=== PATIENT | male | born 1950 | race Caucasian/White ===

== ENCOUNTER → 2018-02-21 | Outpatient (CLI) | payer MEDICARE | END | disposition home or self-care (01) | LOC: LAB SHORT 13:09 → LAB EV 13:09 | DX: N41.9 Inflammatory disease of prostate, unspecified (principal) | CPT/HCPCS: 87077; 87086 ==

== ENCOUNTER → 2018-03-21 | Outpatient (CLI) | payer MEDICARE ==
[2018-03-21 08:28] LABS: BASOPHILS ABSOLUTE AUTO 0.03 K/mm3 (0.00-0.23); BASOPHILS PERCENT AUTO 0 % (0-2); EOSINOPHILS ABSOLUTE AUTO 0.12 K/mm3 (0.00-0.68); EOSINOPHILS PERCENT AUTO 2 % (0-6); Hematocrit 37.7 % (37.0-53.0); Hemoglobin 12.9 g/dL (13.5-17.5); IMMATURE GRAN ABSOLUTE AUTO 0.02 K/mm3 (0.00-0.10); IMMATURE GRAN PERCENT AUTO 0 % (0-1); LYMPHOCYTES ABSOLUTE AUTO 0.79 K/mm3 (0.84-5.20); LYMPHOCYTES PERCENT AUTO 10 % (21-46); MONOCYTES ABSOLUTE AUTO 0.71 K/mm3 (0.16-1.47); MONOCYTES PERCENT AUTO 9 % (4-13); Mean Corpuscular HGB 38.6 pg (26.0-34.0); Mean Corpuscular HGB Conc 34.2 g/dL (31.5-36.5); Mean Corpuscular Volume 113 fL (80-100); Mean Platelet Volume 9.1 fL (9.1-12.4); NEUTROPHILS ABSOLUTE AUTO 6.02 K/mm3 (1.96-9.15); NEUTROPHILS PERCENT AUTO 78 % (41-73); Platelet Count 156 K/mm3 (150-400); RDW Standard Deviation 54.2 fL (35.1-46.3); Red Blood Cell Count 3.34 M/mm3 (4.30-5.90); White Blood Cell Count 7.69 K/mm3 (4.00-11.30)
[2018-03-21 08:40] LABS: Albumin, Blood 3.4 g/dL (3.4-5.0); Albumin/Globulin Ratio 0.9 (0.8-1.8); Bilirubin, Total 1.3 mg/dL (0.1-1.0); Bun/Creatinine Ratio 18.3 (12.0-20.0); Creatinine, Blood 1.26 mg/dL (0.60-1.20); Globulin, Blood 3.9 g/dL (2.2-4.0); Total Protein, Blood 7.3 g/dL (6.4-8.2)
== END | disposition home or self-care (01) ==
LOC: LAB EV 08:18 → LAB SHORT 08:18
PROVIDERS: Physician Assistant Medical
DX: J02.9 Acute pharyngitis, unspecified (principal); F10.20 Alcohol dependence, uncomplicated
CPT/HCPCS: 80053; 85025; 87070

== ENCOUNTER 2018-07-11 00:53 | Inpatient (IN) | payer MEDICARE ==
[~2018-07-11] VITALS: Ht 185.4 cm; Wt 108.1 kg
[2018-07-11] MEDS ORDERED: VERAPAMIL PO (01:07)
[2018-07-11] MEDS ORDERED: ADVAIR INH (01:08)
[2018-07-11] MEDS ORDERED: ALBUTEROL INH (01:08)
[2018-07-11] MEDS ORDERED: COUMADIN PO (01:08)
[2018-07-11] MEDS ORDERED: CLONIDINE (01:09)
[2018-07-11 01:39] LABS: BASOPHILS ABSOLUTE AUTO 0.03 K/mm3 (0.00-0.23); BASOPHILS PERCENT AUTO 1 % (0-2); EOSINOPHILS PERCENT AUTO 2 % (0-6); Hematocrit 38.2 % (37.0-53.0); Hemoglobin 12.5 g/dL (13.5-17.5); IMMATURE GRAN ABSOLUTE AUTO 0.02 K/mm3 (0.00-0.10); IMMATURE GRAN PERCENT AUTO 0 % (0-1); LYMPHOCYTES ABSOLUTE AUTO 1.47 K/mm3 (0.84-5.20); LYMPHOCYTES PERCENT AUTO 24 % (21-46); MONOCYTES ABSOLUTE AUTO 0.75 K/mm3 (0.16-1.47); MONOCYTES PERCENT AUTO 12 % (4-13); Mean Corpuscular HGB 37.5 pg (26.0-34.0); Mean Corpuscular HGB Conc 32.7 g/dL (31.5-36.5); Mean Corpuscular Volume 115 fL (80-100); Mean Platelet Volume 9.7 fL (9.1-12.4); NEUTROPHILS ABSOLUTE AUTO 3.76 K/mm3 (1.96-9.15); NEUTROPHILS PERCENT AUTO 61 % (41-73); Platelet Count 192 K/mm3 (150-400); RDW Coefficient Variation 14.5 % (11.7-14.2); RDW Standard Deviation 62.1 fL (35.1-46.3); Red Blood Cell Count 3.33 M/mm3 (4.30-5.90); White Blood Cell Count 6.13 K/mm3 (4.00-11.30)
[2018-07-11 01:52] LABS: Albumin, Blood 3.4 g/dL (3.4-5.0); Bilirubin, Total 0.5 mg/dL (0.1-1.0); Bun/Creatinine Ratio 14.4 (12.0-20.0); Calcium, Blood 8.6 mg/dL (8.5-10.1); Creatinine, Blood 1.46 mg/dL (0.60-1.20); Globulin, Blood 3.4 g/dL (2.2-4.0); Potassium, Blood 3.8 mmol/L (3.5-5.5); Total Protein, Blood 6.8 g/dL (6.4-8.2)
[2018-07-11 01:59] LABS: International Normalized Ratio 2.03; Prothrombin Time Results 20.1 Sec (9.7-11.5)
--- NOTE | 2018-07-11 03:00 | NUR ---
0300 ADMIT: PT ARRIVES TO ROOM 215 VIA GOURNEY FROM ER AND IS SLIDE SHEET TRANSFERRED TO BED BY 4 PEOPLE. EXTRA LINENS REMOVED AND PT TOLERATES REPOSITIONING WELL. PT ORIENTED TO ROOM, BED, CALL SYSTEM AND PLAN OF CARE.
--- NOTE | 2018-07-11 03:00 | NUR ---
0300 ADMIT: PT ARRIVES TO ROOM 215 VIA GOURNEY FROM ER AND IS SLIDE SHEET TRANSFERRED TO BED BY 4 PEOPLE. EXTRA LINENS REMOVED AND PT TOLERATES REPOSITIONING WELL. VSS, AFEBRILE, PAIN WELL CONTROLLED WITH 1 DOSE 25 MCG IV FENTANYL. PT MAINTAINS NPO STATUS IN ANTICIPATION OF POSSIBLE SURGICAL PROCEDURE. IV PATENT LEFT ELBOW, VOIDING CLEAR YELLOW.
--- NOTE | 2018-07-11 07:00 | NUR ---
SUMMARY: NEW ADMIT LEFT HIP FX ON HOSPITALIST SERVICE WITH ORTHO CONSULT BY DR. DUEÑAS. VSS, AFEBRILE, PAIN WELL CONTROLLED WITH 1 DOSE 25 MCG IV FENTANYL. PT MAINTAINS NPO STATUS IN ANTICIPATION OF POSSIBLE SURGICAL PROCEDURE. IV PATENT RIGHT AC, VOIDING CLEAR YELLOW.
--- NOTE | 2018-07-11 09:00 | NUR ---
PT PLEASANT COOP A/O STATES PAIN LEFT HIP LEFT. 5 WANTS TO BE 1 TOLERATES 3-4. MED PER EMAR. DISCUSSED ETOH. HE STATES 6-8 VODKAS PER DAY. DISCUSSED MAY GO INTO WITHDRAWLS. CHECKED SYMPTOMS. CWA 5. HEADACHE AND REGULAR TREMORS. DENIES HALUCINATIONS. HE TO ADVISE IF BECOMES ANX, AGITATED, HALUCINATIONS, ETC. H/R IRREG, HX AFIB. NO TELE. LUNGS PRESENT WITH EXP WHEEZES T/O. STATES USES INHALERS. BT X4 THINKS LAST BM YEST. VOIDS URINAL. BEDBOUND FOR TODAY UNTIL SURG. BED IN LOW POSITION, CALL LITE IN REACH, CALLS APPROP. TO BE HERE MOST OF DAY. OUT AT THIS TIME. LEFT LEG ROTATED OUT 90', WITHDRAWN.
[2018-07-11] MEDS ORDERED: Pentoxifylline400 MG PO (09:26)
[2018-07-11] MEDS ORDERED: TOCO1000 PO (09:26)
--- NOTE | 2018-07-11 10:11 | NUR ---
CALLED DR LOOMIS. ADVISED MEDS IN COMPUTER. PT HERE AND SURG EXPECTING SURG THIS LATE AFT. ADVISED BP 169/99 AND NO PILLS YET. ADVISED HE ADMITS 6-8 VODKA DRINKS DAILY. REQUEST FOR BEER WITH MEALS. PT NOT DESIRING TO QUIT RINKING. NO ORDERS AT THIS TIME.
--- NOTE | 2018-07-11 16:00 | NUR ---
CALLED DR LOOMIS, ADVISED ABOUT BP. NOW ON LR AT 75, CWA'S 8, LIGHT CHEST PRESSURE RELEIVED WHEN BP DOWN TO 200. HYDRALAZINE, ATIVAN, LIBRIUM FENTANYL GIVEN. BP STILL UP. WITHDRAWL SYMPTOMS BP, LIGHT ANX AND IRRIT, HEADACHE, LIGHT TREMORS. DR TO MAKE ORDERS.
--- NOTE | 2018-07-11 18:46 | NUR ---
PT PLEASANT TODAY, BP RESOLVING DOWN TO 140'S THIS DM. PAIN DOWN ALSO. RESTING COMFORTABLY AT THIS TIME. AT BEDSIDE. CWA DOWN TO 4. UNABLE TO SET UP BUCKS TRACTION TODAY. WILL PASS TO [facility]. NOTE IF CWA >10 AFTER MEDICATINS, SEND TO PCU. BED IN LOW POSITION, CALL LITE IN REACH, CALLS APPROP
[2018-07-12 04:19] LABS: BASOPHILS ABSOLUTE AUTO 0.01 K/mm3 (0.00-0.23); BASOPHILS PERCENT AUTO 0 % (0-2); EOSINOPHILS ABSOLUTE AUTO 0.01 K/mm3 (0.00-0.68); EOSINOPHILS PERCENT AUTO 0 % (0-6); Hematocrit 33.7 % (37.0-53.0); Hemoglobin 11.3 g/dL (13.5-17.5); IMMATURE GRAN ABSOLUTE AUTO 0.02 K/mm3 (0.00-0.10); IMMATURE GRAN PERCENT AUTO 0 % (0-1); LYMPHOCYTES ABSOLUTE AUTO 0.47 K/mm3 (0.84-5.20); LYMPHOCYTES PERCENT AUTO 6 % (21-46); MONOCYTES ABSOLUTE AUTO 0.63 K/mm3 (0.16-1.47); MONOCYTES PERCENT AUTO 8 % (4-13); Mean Corpuscular HGB 37.2 pg (26.0-34.0); Mean Corpuscular HGB Conc 33.5 g/dL (31.5-36.5); Mean Platelet Volume 9.6 fL (9.1-12.4); NEUTROPHILS ABSOLUTE AUTO 6.48 K/mm3 (1.96-9.15); NEUTROPHILS PERCENT AUTO 85 % (41-73); Platelet Count 142 K/mm3 (150-400); RDW Coefficient Variation 14.4 % (11.7-14.2); RDW Standard Deviation 58.8 fL (35.1-46.3); Red Blood Cell Count 3.04 M/mm3 (4.30-5.90); White Blood Cell Count 7.62 K/mm3 (4.00-11.30)
[2018-07-12 04:21] LABS: Mean Corpuscular Volume 111 fL (80-100)
[2018-07-12 04:31] LABS: International Normalized Ratio 1.79; Prothrombin Time Results 17.8 Sec (9.7-11.5)
[2018-07-12 04:35] LABS: Alanine Aminotransfer (ALT/SGP 19 U/L (12-78); Albumin/Globulin Ratio 0.9 (0.8-1.8); Alk Phos 113 U/L (50-136); Anion Gap 8 mmol/L (6-16); Aspartate Aminotrans (AST/SGOT 15 U/L (12-37); Bilirubin, Total 2.2 mg/dL (0.1-1.0); Blood Urea Nitrogen 17 mg/dL (8-24); Bun/Creatinine Ratio 18.3 (12.0-20.0); CO2, Blood 26 mmol/L (21-32); Calcium, Blood 8.2 mg/dL (8.5-10.1); Chloride, Blood 106 mmol/L (98-108); Creatinine, Blood 0.93 mg/dL (0.60-1.20); Globulin, Blood 3.3 g/dL (2.2-4.0); Glomerular Filtration Rate >60 (60-); Glucose, Blood 121 mg/dL (70-99); Magnesium, Blood 1.8 mg/dL (1.6-2.4); Phosphorus, Blood 2.4 mg/dL (2.5-4.9); Potassium, Blood 3.8 mmol/L (3.5-5.5); Sodium, Blood 140 mmol/L (136-145); Total Protein, Blood 6.3 g/dL (6.4-8.2)
--- NOTE | 2018-07-12 07:38 | NUR ---
SHIFT SUMMARY: PT CONTINUES TO HAVE ELEVATED BP DESPITE CLONIDINE PATCH, ATIVAN, LIBRIUM AND FENTANYL. CWA LOW 2. HIGH 8. CONFUSED AT TIMES AND DISORIENTED TO LOCATION AND REASON IN HOSPITAL. TRACTION IN PLACE. NPO FOR PLANNED SURGERY TODAY. AT BEDSIDE.
--- NOTE | 2018-07-12 17:57 | NUR ---
SHIFT SUMMARY PT'S CIWA HAS REMAINED UNCHANGED ALTHOUGH PT IS MORE FORGETFUL AND DROWSY THIS AFTERNOON. HTN CONTINUES T/O DAY, MD AWARE, MEDICATED PER EMAR, IMPROVED BP, CONTINUING TO TREND.
[2018-07-13 04:09] LABS: BASOPHILS ABSOLUTE AUTO 0.01 K/mm3 (0.00-0.23); BASOPHILS PERCENT AUTO 0 % (0-2); EOSINOPHILS ABSOLUTE AUTO 0.02 K/mm3 (0.00-0.68); EOSINOPHILS PERCENT AUTO 0 % (0-6); Hematocrit 30.4 % (37.0-53.0); IMMATURE GRAN ABSOLUTE AUTO 0.02 K/mm3 (0.00-0.10); IMMATURE GRAN PERCENT AUTO 0 % (0-1); LYMPHOCYTES ABSOLUTE AUTO 0.36 K/mm3 (0.84-5.20); LYMPHOCYTES PERCENT AUTO 5 % (21-46); MONOCYTES ABSOLUTE AUTO 0.58 K/mm3 (0.16-1.47); MONOCYTES PERCENT AUTO 8 % (4-13); Mean Corpuscular HGB 36.6 pg (26.0-34.0); Mean Corpuscular HGB Conc 32.9 g/dL (31.5-36.5); Mean Corpuscular Volume 111 fL (80-100); Mean Platelet Volume 9.7 fL (9.1-12.4); NEUTROPHILS ABSOLUTE AUTO 6.16 K/mm3 (1.96-9.15); NEUTROPHILS PERCENT AUTO 86 % (41-73); Platelet Count 108 K/mm3 (150-400); RDW Coefficient Variation 14.3 % (11.7-14.2); RDW Standard Deviation 58.1 fL (35.1-46.3); Red Blood Cell Count 2.73 M/mm3 (4.30-5.90); White Blood Cell Count 7.15 K/mm3 (4.00-11.30)
[2018-07-13 04:21] LABS: International Normalized Ratio 1.36; Prothrombin Time Results 13.8 Sec (9.7-11.5)
[2018-07-13 04:27] LABS: Alanine Aminotransfer (ALT/SGP 16 U/L (12-78); Albumin, Blood 2.8 g/dL (3.4-5.0); Albumin/Globulin Ratio 0.9 (0.8-1.8); Alk Phos 100 U/L (50-136); Anion Gap 8 mmol/L (6-16); Aspartate Aminotrans (AST/SGOT 22 U/L (12-37); Bilirubin, Total 1.3 mg/dL (0.1-1.0); Blood Urea Nitrogen 18 mg/dL (8-24); Bun/Creatinine Ratio 21.7 (12.0-20.0); CO2, Blood 27 mmol/L (21-32); Calcium, Blood 8.3 mg/dL (8.5-10.1); Chloride, Blood 105 mmol/L (98-108); Creatinine, Blood 0.83 mg/dL (0.60-1.20); Globulin, Blood 3.2 g/dL (2.2-4.0); Glomerular Filtration Rate >60 (60-); Glucose, Blood 120 mg/dL (70-99); Potassium, Blood 3.8 mmol/L (3.5-5.5); Sodium, Blood 140 mmol/L (136-145)
--- NOTE | 2018-07-13 06:24 | NUR ---
SUMMARY PTS INR RETURNED AT 1.36 PT ON OR SCHEDULE FOR 0730 AM. I CALLED AND REPORTED LAB RESULTS. GAVE VERBAL CONSENT FOR BLOOD AND IS ON HER WAY TO HOSPITAL SOON. PT RESTING AT THIS TIME CIWA IS LEVEL 2. PT HAS BEEN NPO.PER SUPERVISER INSTRUCT, I WILL CALL HOSPITALIST IN REGARDS TO VERAPAMIL AND DAFNE SR THAT PT HAS SCHEDULED FOR 0900.
[2018-07-13 11:39] LABS: International Normalized Ratio 1.25; Prothrombin Time Results 12.7 Sec (9.7-11.5)
--- NOTE | 2018-07-13 11:55 | NUR ---
PT TO DAY SURGERY VIA HOSPITAL BED
--- NOTE | 2018-07-13 12:08 | NUR ---
PT TRANSPORTED TO [facility]. SLEEPY, WAKES TO VOICE. GROGGY. RESPONDS BRIEFLY AND FALLS BACK TO SLEEP. AT BEDSIDE. PT AND AGREE WITH PLANNED SURGERY.
[2018-07-13] MEDS ORDERED: WARF5 PO (15:39)
[2018-07-13] MEDS ORDERED: Coumadin2.5 MG PO (15:40)
--- NOTE | 2018-07-13 18:57 | NUR ---
SHIFT SUMMARY PT HAS PERKED UP THIS AFTERNOON AND WAS ABLE TO NOD AND SHAKE HIS HEAD. MOVED ARMS TO HELP MOVE SIDE TO SIDE IN BED.
[2018-07-14 01:26] LABS: PO2 Arterial 139 mmHg (80-100); pH Blood Arterial 7.08 (7.35-7.45)
--- NOTE | 2018-07-14 02:35 | NUR ---
PT ARRIVES TO ICU 10 FROM SURGICAL FLOOR POST OIL AND GAS FIELD TECHNICIAN CALL. PT HAS RECEIVED A DOSE OF RAMAZECON WHILE ON SURGICAL FLOOR THAT ENABLED PT TO AWAKEN. PT CURRENTLY SLEEPING WEARING BIPAP. HE WAS ABLE TO TELL THE RESPIRATORY THERAPIST HE HAS A CPAP AT HOME, BUT DOES NOT TYPICALLY WEAR IT AT THIS TIME. PT'S WAS CALLED BY SURGICAL FLOOR RN AND IS NOW AT BEDSIDE. UPDATE GIVEN TO HER. PT'S BLOOD PRESSURES SOMEWHAT HYPOTENSIVE BUT IS MAINTAINING MAP > 60. WILL MONITOR BP Q 15 MINUTES UNTIL STABLE. PT HAS BEEN HYPERTENSIVE EARLIER IN DAY. PT ASYMPTOMATIC WITH LOWER BLOOD PRESSURES. SEE VITAL SIGN FLOWSHEET FOR DETAILS. WILL REVIEW CHART AND PLAN OF CARE FOR THIS PT.
[2018-07-14 04:22] LABS: BASOPHILS ABSOLUTE AUTO 0.01 K/mm3 (0.00-0.23); BASOPHILS PERCENT AUTO 0 % (0-2); EOSINOPHILS ABSOLUTE AUTO 0.01 K/mm3 (0.00-0.68); EOSINOPHILS PERCENT AUTO 0 % (0-6); Hematocrit 31.4 % (37.0-53.0); IMMATURE GRAN ABSOLUTE AUTO 0.06 K/mm3 (0.00-0.10); IMMATURE GRAN PERCENT AUTO 1 % (0-1); LYMPHOCYTES ABSOLUTE AUTO 0.21 K/mm3 (0.84-5.20); LYMPHOCYTES PERCENT AUTO 3 % (21-46); MONOCYTES ABSOLUTE AUTO 0.33 K/mm3 (0.16-1.47); MONOCYTES PERCENT AUTO 4 % (4-13); Mean Corpuscular HGB 37.6 pg (26.0-34.0); Mean Corpuscular HGB Conc 31.8 g/dL (31.5-36.5); NEUTROPHILS ABSOLUTE AUTO 6.97 K/mm3 (1.96-9.15); NEUTROPHILS PERCENT AUTO 92 % (41-73); NRBC ABSOLUTE 0.02 K/mm3 (0.00-0.02); NRBC Auto 0.3 /100 WBC (0.0-0.2); Platelet Count 111 K/mm3 (150-400); RDW Coefficient Variation 14.6 % (11.7-14.2); RDW Standard Deviation 62.9 fL (35.1-46.3); Red Blood Cell Count 2.66 M/mm3 (4.30-5.90); White Blood Cell Count 7.59 K/mm3 (4.00-11.30)
[2018-07-14 04:23] LABS: Mean Corpuscular Volume 118 fL (80-100)
[2018-07-14 04:30] LABS: Albumin, Blood 2.7 g/dL (3.4-5.0); Albumin/Globulin Ratio 0.8 (0.8-1.8); Bilirubin, Total 0.5 mg/dL (0.1-1.0); Bun/Creatinine Ratio 20.6 (12.0-20.0); Creatinine, Blood 1.31 mg/dL (0.60-1.20); Globulin, Blood 3.5 g/dL (2.2-4.0); Total Protein, Blood 6.2 g/dL (6.4-8.2)
[2018-07-14 04:39] LABS: PCO2 Arterial 49.8 mmHg (35-45); PO2 Arterial 84.6 mmHg (80-100); pH Blood Arterial 7.32 (7.35-7.45)
--- NOTE | 2018-07-14 06:45 | NUR ---
PT'S BLOOD PRESSURE SELF CORRECTS. HAS BEEN ABLE TO AWAKEN AND HOLD CONVERSATION. HAS GONE HOME FOR THE NIGHT. PT DENIES PAIN. HAS BEEN COMPLIANT WITH WEARING BIPAP MASK. HAVE BEEN ABLE TO TITRATE FIO2 DOWN TO 25 PERCENT. REPORT TO BE GIVEN TO ONCOMING RN.
--- NOTE | 2018-07-14 07:15 | NUR ---
ASSUMED CARE OF PT. PT IS ASLEEP, ON BIPAP 16/8 FIO2 25% BUR 16. PT OPENS EYES TO VOICE. FOLLOWING COMMANDS. ORIENTED X 3.
--- NOTE | 2018-07-14 07:45 | NUR ---
PT SEEN BY DR. CESAR. HE CHECKED PT'S INCISION AT THE LEFT HIP. DRESSING WAS NOT CHANGED. DRESSING CLEAN DRY AND INTACT. HE STATED HE WILL DO DRESSING CHANGE TOMORROW.
--- NOTE | 2018-07-14 09:00 | NUR ---
ASSISTED PT WITH HIS MEALS. PT IS OFF BIPAP AT THIS TIME. STARTED ON 4LPM NC. PT TOLERATING WELL. PT DOES HAVE OCCASSIONAL COUGHING IN BETWEEN BITES.
[2018-07-14 10:38] LABS: International Normalized Ratio 1.16; Prothrombin Time Results 11.8 Sec (9.7-11.5)
--- NOTE | 2018-07-14 11:39 | NUR ---
STARTED 500ML NS BOLUS ORDERED BY DR. SPARKS. PT'S SBP IS AROUND THE 70s. PT DENIES DIZZINESS OR FAINTING. STILL SLEEPY.
--- NOTE | 2018-07-14 13:22 | NUR ---
PT'S BLOOD PRESSURE CURRENTLY @ 98/40. DR. LIGHT WAS NOTIFIED REGARDING PT'S CURRENT BLOOD PRESSURE BUT NO URINE OUTPUT FROM THE BEGINNING OF THE SHIFT UNTIL NOW.
--- NOTE | 2018-07-14 15:08 | NUR ---
DR. LIGHT CAME BY TO SEE PT. UPDATED HIM OF PT'S STATUS.
--- NOTE | 2018-07-14 18:17 | NUR ---
SHIFT SUMMARY: PT IS MORE AWAKE TONIGHT THAN THIS MORNING. PT'S SWALLOWING HAS SLIGHTLY IMPROVED FROM THIS MORNING LESS COUGHING IN BETWEEN BITES. PT IS AFEBRILE. BIPAP ON WHEN SLEEPING. PT HAD AN EPISODE OF HYPOTENSION 70s-80s- SYSTOLIC. PT RECEIVE 1 LITER OF NS BOLUS FOR THE HYPOTENSION. PT IS STILL ON AFIB BUT CONTROLLED RATE. BP HAS IMPROVED AFTER 1 LITER NS WAS DONE.
--- NOTE | 2018-07-14 19:16 | NUR ---
ASSUMED CARE OF PT BEDSIDE REPORT RECEIVED. HE IS ORIENTED TO SURROUNDINGS AND SITUATION AT THIS TIME. DENIES NEEDS AFTER REPOSITIONING. SENTANCES ARE FULL, SATS WELL ON 3 L/MIN OXYGEN VIA NC, LUNGS CLEAR WITH DIM BASES BILAT. HR IRREG, PVCS AND AFIB NOTED ON MONITOR, PRESSURE IMPROVED, PULSES FULL X 4 EXTREMITIES, SKIN IS PWD. PT JOKES ABOUT BEING CROOKED ON CHAIR AT HOME BEFORE HE FELL AND FRACTURED HIP. HE DENIES PAIN AT REST, STATES 3.5/10 WITH MOVEMENT. DRESSINGS TO LEFT HIP AND LATERAL THIGH ARE NOTED CDI. PAS STOCKINGS IN PLACE BILAT LOWER EXTREMITIES.
--- NOTE | 2018-07-14 21:15 | NUR ---
SPOUSE NOTIFIED OF PT IMPENDING TRANSFER TO PCU 3 AFTER APPROVAL OBTAINED FROM PT.
--- NOTE | 2018-07-14 21:27 | NUR ---
PT TO PCU 3 VIA BED
--- NOTE | 2018-07-14 21:50 | NUR ---
ASSUMED CARE OF PT FROM BEHAVIORAL HEALTH CARE COORDINATOR. PT TRANSFERRED TO BED VIA SLIDER SHEET. VS STABLE. PT ALERT TO SELF, SURROUNDINGS, AND FOLLOWING DIRECTIONS, BUT CONFUSED ABOUT WHERE HE IS. PT ORIENTED TO ROOM. SURGICAL SITE COVERED WITH DRESSING C/D/I. PT ASKED ABOUT ETOH HX. PT STATES HE DRINKS "A LOT OF VODKA EVERDAY". WILL CONTINUE TO MONITOR FOR ETOH WITHDRAWAL. BED IN LOWEST POSITION WITH ALARM ON. RT IN TO PLACE PT ON BIPAP FOR SLEEPING. CALL LIGHT IN REACH.
[2018-07-15 04:23] LABS: BASOPHILS PERCENT AUTO 0 % (0-2); EOSINOPHILS PERCENT AUTO 0 % (0-6); IMMATURE GRAN ABSOLUTE AUTO 0.05 K/mm3 (0.00-0.10); IMMATURE GRAN PERCENT AUTO 1 % (0-1); LYMPHOCYTES ABSOLUTE AUTO 0.31 K/mm3 (0.84-5.20); LYMPHOCYTES PERCENT AUTO 4 % (21-46); MONOCYTES PERCENT AUTO 6 % (4-13); Mean Corpuscular HGB 37.3 pg (26.0-34.0); Mean Corpuscular HGB Conc 32.1 g/dL (31.5-36.5); Mean Corpuscular Volume 116 fL (80-100); Mean Platelet Volume 10.1 fL (9.1-12.4); NEUTROPHILS ABSOLUTE AUTO 7.13 K/mm3 (1.96-9.15); NEUTROPHILS PERCENT AUTO 89 % (41-73); Platelet Count 125 K/mm3 (150-400); RDW Coefficient Variation 14.5 % (11.7-14.2); RDW Standard Deviation 61.6 fL (35.1-46.3); Red Blood Cell Count 2.41 M/mm3 (4.30-5.90); White Blood Cell Count 7.99 K/mm3 (4.00-11.30)
[2018-07-15 04:35] LABS: International Normalized Ratio 1.18
[2018-07-15 04:43] LABS: Bun/Creatinine Ratio 24.2 (12.0-20.0); Calcium, Blood 7.9 mg/dL (8.5-10.1); Creatinine, Blood 1.78 mg/dL (0.60-1.20); Potassium, Blood 4.8 mmol/L (3.5-5.5)
--- NOTE | 2018-07-15 08:00 | NUR ---
pt laying in bed with eyes closed, wakes easily, a/ox3, pleasant and cooperative with care, follows commands well, denies pain at this time, lungs are clear in upper [place], slightly dim in bases, resp even and unlabored, no cough noted, hrr, tele in place running afib in the 's, he is chronic afib, +1 edema noted, ppp+2, cap refill <3sec, vs stable, afebrile, iv site is clear and patent, btx4, a bit hypoactive, abd round soft nontender, voids without diff, some incont durring the night, skin c/w/d, has dressing to left hip c/d/I, weak but marcelino glez. call light in reach.
--- NOTE | 2018-07-15 10:02 | NUR ---
pt worked with pt and got him up to chair, 2 person assist. call light in reach.
--- NOTE | 2018-07-15 12:25 | NUR ---
pt continues to sit up in recliner chair, states he feels good, no pain to speak of, vs stable, no needs at this time, he was advanced on his diet by speech. call light in reach.
[2018-07-16 05:34] LABS: BASOPHILS PERCENT AUTO 0 % (0-2); EOSINOPHILS ABSOLUTE AUTO 0.02 K/mm3 (0.00-0.68); EOSINOPHILS PERCENT AUTO 0 % (0-6); Hemoglobin 8.8 g/dL (13.5-17.5); IMMATURE GRAN ABSOLUTE AUTO 0.02 K/mm3 (0.00-0.10); IMMATURE GRAN PERCENT AUTO 0 % (0-1); LYMPHOCYTES ABSOLUTE AUTO 0.46 K/mm3 (0.84-5.20); LYMPHOCYTES PERCENT AUTO 9 % (21-46); MONOCYTES ABSOLUTE AUTO 0.53 K/mm3 (0.16-1.47); MONOCYTES PERCENT AUTO 11 % (4-13); Mean Corpuscular HGB 37.4 pg (26.0-34.0); Mean Corpuscular HGB Conc 32.6 g/dL (31.5-36.5); Mean Corpuscular Volume 115 fL (80-100); Mean Platelet Volume 9.6 fL (9.1-12.4); NEUTROPHILS ABSOLUTE AUTO 3.86 K/mm3 (1.96-9.15); NEUTROPHILS PERCENT AUTO 79 % (41-73); Platelet Count 129 K/mm3 (150-400); RDW Coefficient Variation 14.6 % (11.7-14.2); RDW Standard Deviation 60.8 fL (35.1-46.3); Red Blood Cell Count 2.35 M/mm3 (4.30-5.90); White Blood Cell Count 4.89 K/mm3 (4.00-11.30)
[2018-07-16 05:47] LABS: International Normalized Ratio 1.25; Prothrombin Time Results 12.7 Sec (9.7-11.5)
[2018-07-16 05:55] LABS: Albumin, Blood 2.4 g/dL (3.4-5.0); Anion Gap 6 mmol/L (6-16); Blood Urea Nitrogen 42 mg/dL (8-24); Bun/Creatinine Ratio 33.3 (12.0-20.0); CO2, Blood 26 mmol/L (21-32); Calcium, Blood 7.9 mg/dL (8.5-10.1); Chloride, Blood 109 mmol/L (98-108); Creatinine, Blood 1.26 mg/dL (0.60-1.20); Glomerular Filtration Rate >60 (60-); Glucose, Blood 94 mg/dL (70-99); Phosphorus, Blood 2.4 mg/dL (2.5-4.9); Potassium, Blood 4.4 mmol/L (3.5-5.5); Sodium, Blood 141 mmol/L (136-145)
--- NOTE | 2018-07-16 06:20 | NUR ---
SHIFT SUMMARY PT ALERT AND ORIENTED. VS STABLE THROUGHOUT SHIFT. PT UP TO CHAIR AT BEGINNING OF SHIFT AND TRANSFERRED BACK TO BED AFTER 2 HOURS. PT TOLERATED WELL. 02 SATS HAVE REMAINED ABOVE 92% ON RA. HOME CPAP USED WHILE SLEEPING. PT HAD ONE INCONTINENT VOID THIS SHIFT. PT STATES HE DOESN'T FEEL THE URGE TO URINATE UNTIL IT IS TOO LATE. PT DID USE THE URINAL THIS AM SUCCESSFULLY. PT COMPLAINED OF PAIN TO THE LEFT HIP THAT WAS RELIEVED AFTER MEDICATION ADMINISTRATION. PT SHOWS NO SIGNS OR SYMPTOMS OF ETOH WITHDRAWAL. CALL LIGHT IN REACH. WILL CONTINUE TO MONITOR AND REPORT TO ONCOMING RN.
--- NOTE | 2018-07-16 16:50 | NUR ---
SHIFT SUMMARY PT RESTING IN RECLINER THROUGHOUT THE DAY. VSS. ALERT AND ORIENTED X3 WITH SOME FORGETFULNESS. C/O 4/10 LEFT HIP PAIN WITH MOVEMENT, MEDICATED WITH PRN PAIN MEDS, PAIN IMPROVED WHEN RESTING. LUNG SOUNDS CLEAR, DIMINISHED BASES. OXYGEN SATURATION MID 90s ON ROOM AIR. 1+ PITTING EDEMA TO BLE. AFIB WITH BBB AND PVCs ON TELE RATE 70s-90s. WILL CONTINUE TO MONITOR.
--- NOTE | 2018-07-16 16:53 | NUR ---
TRANSFER NOTE PT STABLE FOR TRANSFER TO SURGICAL FLOOR. REPORT CALLED TO [facility] ON SURGICAL FLOOR. PT TRANSFERED WITH BELONGINGS TO SURGICAL FLOOR.
--- NOTE | 2018-07-16 17:00 | NUR ---
transfer: PT TO ROOM 215 FROM PCU. PT ARRIVED IN RECLINER CHAIR, PT IS A LIFT TRANSFER. TTWB ON LEFT LEG BUT PT DOES NOT ASSIST WITH ACTIVITY. PT DENIES PAIN WHILE IN CHAIR. DINNER TRAY GIVEN. IV INFUSING PER ORDERS. CONT BIOX PLACED FOR CPAP PROTOCOL. SATS STABLE ON RA. PAS PLACED TO BLE. ATTENDS ON FOR OCCASIONAL INCONTINENCE. CALL LIGHT PLACED IN REACH.
--- NOTE | 2018-07-16 18:33 | NUR ---
PT HAS BEEN STABLE SINCE TRANSFER. PT MAX ASSIST BACK TO BED FROM CHAIR. ATTENDS CHANGED PRN FOR URINE AND STOOL. PT GIVEN COUMADIN IN APPLESAUCE, SWALLOWS WELL. 50% DINNER EATEN. CONT IV FLUIDS. DRESSINGS TO LEFT HIP X2 WITH SMALL AMT SHADOWING UNDERNEATH. CONT BIOX ON. CPAP AT HS. PAS TO BLE, SWELLING NOTED IN BOTH BLE. PT USES CALL LIGHT APPROPRIATELY PRN.
--- NOTE | 2018-07-16 20:47 | NUR ---
PHYSICIAN COMMUNICATION AT 2114; DR. ADINA POLLOCKIFIED PT SYSTOLIC 180-200 SYSTOLIC; PT MEDICATED WITH 2 NORCO; BP NOW 153/88. PT HX OF LOW BP AFTER SURGERY, SYSTOLIC IN 80'S. PT STS HIS NOTIFIED OF PT HX OF CKD, HX OF AFIB, SWELLING IN FEET, IV GTT AT 150, ORAL INTAKE FOR LAST 24 HRS. HOME AND CURRENT BP MEDICATIONS REVIEWED. ORDER TO STOP IV INFUSION RECIEVED. WILL ENCOURAGE PO INTAKE AND MONITOR OUT PUT.
[2018-07-17 06:47] LABS: BASOPHILS ABSOLUTE AUTO 0.02 K/mm3 (0.00-0.23); BASOPHILS PERCENT AUTO 0 % (0-2); EOSINOPHILS ABSOLUTE AUTO 0.06 K/mm3 (0.00-0.68); EOSINOPHILS PERCENT AUTO 1 % (0-6); Hematocrit 30.6 % (37.0-53.0); Hemoglobin 9.9 g/dL (13.5-17.5); IMMATURE GRAN ABSOLUTE AUTO 0.01 K/mm3 (0.00-0.10); IMMATURE GRAN PERCENT AUTO 0 % (0-1); LYMPHOCYTES ABSOLUTE AUTO 0.47 K/mm3 (0.84-5.20); LYMPHOCYTES PERCENT AUTO 9 % (21-46); MONOCYTES ABSOLUTE AUTO 0.61 K/mm3 (0.16-1.47); MONOCYTES PERCENT AUTO 12 % (4-13); Mean Corpuscular HGB 37.8 pg (26.0-34.0); Mean Corpuscular HGB Conc 32.4 g/dL (31.5-36.5); Mean Corpuscular Volume 117 fL (80-100); Mean Platelet Volume 9.9 fL (9.1-12.4); NEUTROPHILS ABSOLUTE AUTO 4.15 K/mm3 (1.96-9.15); NEUTROPHILS PERCENT AUTO 78 % (41-73); Platelet Count 161 K/mm3 (150-400); RDW Coefficient Variation 14.6 % (11.7-14.2); RDW Standard Deviation 62.5 fL (35.1-46.3); Red Blood Cell Count 2.62 M/mm3 (4.30-5.90); White Blood Cell Count 5.32 K/mm3 (4.00-11.30)
[2018-07-17 07:05] LABS: International Normalized Ratio 1.58; Prothrombin Time Results 15.9 Sec (9.7-11.5)
[2018-07-17 07:07] LABS: Anion Gap 8 mmol/L (6-16); Blood Urea Nitrogen 33 mg/dL (8-24); Bun/Creatinine Ratio 31.4 (12.0-20.0); CO2, Blood 25 mmol/L (21-32); Calcium, Blood 8.2 mg/dL (8.5-10.1); Chloride, Blood 111 mmol/L (98-108); Creatinine, Blood 1.05 mg/dL (0.60-1.20); Glomerular Filtration Rate >60 (60-); Glucose, Blood 83 mg/dL (70-99); Potassium, Blood 4.3 mmol/L (3.5-5.5); Sodium, Blood 144 mmol/L (136-145)
--- NOTE | 2018-07-17 08:56 | NUR ---
SHIFT SUMMARY POD#4 L HIP PINNING; DRESSINGS INTACT. PAIN MANGED PER EMAR. SEE PHYSICAIN COMMUNICATION NOTE R/T PT BP'S. BM X1. CPAP WHILE SLEEPING. RA WHILE AWAKE. SLIGHT WHEEZE LEFT LUNG, TX PER RT. PT DENIES SOB. TELEMETRY IN PLACE; A FIB, BBB AND PVC'S PER STAFF TRAINER; PT DENIES CP. PT REPOSITIONED T/O SHIFT. SCD'S TO BLE'S. EDEMA TO BLE, INTO CALVES AND THIGH, SCROTAL EDEMA NOTED. SALINE LOCKED POST ORDER. SWALLOW PRECAUTIONS PER ST RECOMMENDATIONS. PILLS CRUSHED. CALL LIGHT IN REACH; PT DEMONSTRATES USE. REPORT GIVEN TO DAY SHIFT RN.
--- NOTE | 2018-07-17 11:18 | NUR ---
DR. NAYLOR NOTIFIED OF LIQUID STOOL THIS AM. ALSO NOTIFIED OF WEAKNESS/PAIN TO RUE. WILL CONTINUE TO MONITOR. WILL SEND STOOL SAMPLE.
--- NOTE | 2018-07-17 18:29 | NUR ---
ELEVATED BP UPON REVIEWING VS AT 1800, THIS RN NOTICED BP WAS ELEVATED WHEN VS TAKEN AT 1600. BP WAS 192/107 AT 1600. REQUESTED BP RECHECK AND BP WAS 209/129. CESAR NURSE PRACTITIONER NOTIFED. HYDRALAZINE GIVEN PER ORDER. BP STARTING TO DECREASE, WILL MONITOR.
--- NOTE | 2018-07-17 19:27 | NUR ---
SHIFT SUMMARY BP ELEVATED THIS EVENING. HYDRALAZINE WAS GIVEN WITH MINIMAL RESULTS; REPORT GIVEN TO SUMMER RN REGARDING ELEVATED BP AND SHE VERBALIZED SHE WOULD FOLLOW UP WITH [facility] NURSE PRACTITIONER. PAIN HAS BEEN MANAGED WITH PO PAIN MEDICATION. PT IS A 2 PERSON ASSIST WITH THE LIFT. HE HAS BEEN INCONTINENT OF LIQUID STOOL THIS SHIFT. STOOL SAMPLE SENT TO THE LAB. PLAN FOR DISCHARGE TO SNF IF BED IS AVALIABLE TOMORROW.
--- NOTE | 2018-07-17 20:30 | NUR ---
2030: PT TO IMAGING FOR SHOULDER XRAY; AWAIT RETURN.
--- NOTE | 2018-07-17 20:50 | NUR ---
2049: PT RETURNS FROM IMAGING AND IS SLIDE SHEET TRANSFERRED BACK TO BED; TOW, CALL LIGHT IN REACH.
[2018-07-18 05:53] LABS: International Normalized Ratio 2.03; Prothrombin Time Results 20.1 Sec (9.7-11.5)
--- NOTE | 2018-07-18 07:11 | NUR ---
SUMMARY: POD 6 LEFT NICHO POST FALL BY DR. CESAR. PT GIVEN 2ND DOSE OF 10MG IV HYDRALAZINE EARLY IN SHIFT AND HTN RESOLVED. XRAY OF SHOULDER FOR ROTATOR CUFF INSULT PER DR. NAYLOR COMPLETED. PT TAKES ALL MEDS WITHOUT DIFFICULTY AND IS MEDICATED X1 WITH NORCO FOR LEFT HIP PAIN. PT REMAINS STABLE ON ROOM AIR WITH GOOD TCDB EFFORT AND MOIST COUGH. ANTICIPATE SNF DC LATER THIS DAY.
--- NOTE | 2018-07-18 08:12 | NUR ---
ELEVATED BP PT GIVEN HYDRALAZINE FOR ELEVATED BP OF 182/100. DR. NAYLOR NOTIFIED. PLAN TO POSSIBLY RESTART HOME BP MEDICATION. WILL CONTINUE TO MONITOR.
--- NOTE | 2018-07-18 15:40 | NUR ---
ELEVATED BP AFTER TRANSFER FROM BED TO / BP WAS 171/108. PT RESTED FOR 5 MINUTES AND BP WAS RETAKEN 168/97. DR. Amarjit BRADEN WAS NOTIFIED; HE SAID PT WAS SAFE FOR DISCHARGE AND COULD LEAVE WITHOUT ADDITIONAL MEDICATION. HE EDUCATED THIS RN THAT HIS BP MEDICATIONS WILL TAKE SEVERAL DAYS TO BECOME THERAPEUTIC. [facility] AT [facility] WAS NOTIFIED PRIOR TO PT LEAVING WITH TRANSPORT.
--- NOTE | 2018-07-18 15:45 | NUR ---
DISCHARGE PT DISCHARGED AT APPROXIMATELY 1545 WITH [facility] TRANSPORT. REPORT WAS CALLED TO MARY ANN AT [facility], AT APPROXIMATELY 1535. SCRIPTS, DRESSINGS AND BELONGINGS SENT WITH THE PATENT TO [facility]. PT TRANSPORTED IN W/C.
== END 2018-07-18 15:51 | DRG 481 ==
LOC: ER 00:53 → SURS 00:54 → ICUW 07-14 01:35 → PCU 07-14 21:40 → SURS 07-16 17:23
PROVIDERS: Emergency Medicine; Family Medicine; Hospitalist; Orthopaedic Surgery; Pharmacist; ADMIT Internal Medicine
PROC: 0QS734Z Reposition Left Upper Femur with Internal Fixation Device, Percutaneous Approach (ICD-10-PCS; principal; 2018-07-13 12:30)
PROC: 5A09457 Assistance with Respiratory Ventilation, 24-96 Consecutive Hours, Continuous Positive Airway Pressure (ICD-10-PCS; 2018-07-14)
DX: S72.142A Displaced intertrochanteric fracture of left femur, initial encounter for closed fracture (principal); J98.11 Atelectasis; N17.9 Acute kidney failure, unspecified; J44.1 Chronic obstructive pulmonary disease with (acute) exacerbation; F10.232 Alcohol dependence with withdrawal with perceptual disturbance; R13.10 Dysphagia, unspecified; I48.2 Chronic atrial fibrillation; N18.3 Chronic kidney disease, stage 3 (moderate); I95.81 Postprocedural hypotension; I12.9 Hypertensive chronic kidney disease with stage 1 through stage 4 chronic kidney disease, or unspecified chronic kidney disease; I44.7 Left bundle-branch block, unspecified; R09.02 Hypoxemia; E86.9 Volume depletion, unspecified; W01.190A Fall on same level from slipping, tripping and stumbling with subsequent striking against furniture, initial encounter; Y92.009 Unspecified place in unspecified non-institutional (private) residence as the place of occurrence of the external cause; Y93.89 Activity, other specified; T42.75XA Adverse effect of unspecified antiepileptic and sedative-hypnotic drugs, initial encounter; M25.511 Pain in right shoulder; R19.7 Diarrhea, unspecified; Y92.230 Patient room in hospital as the place of occurrence of the external cause; Z96.652 Presence of left artificial knee joint; Z79.01 Long term (current) use of anticoagulants; Z87.891 Personal history of nicotine dependence; Z87.01 Personal history of pneumonia (recurrent); Z79.899 Other long term (current) drug therapy; Z85.89 Personal history of malignant neoplasm of other organs and systems; Z92.3 Personal history of irradiation
CPT/HCPCS: 36415; 36600; 71045; 71250; 73030; 73502; 80048; 80053; 80069; 82803; 82947; 83735; 84100; 84145; 85025; 85610; 87493; 92526; 92610; 93005; 93010; 94640; 94660; 94667; 94760; 94762; 97110; 97162; 97166; 97530; 99285-25; C1713; C1769; G8978; G8979; J0360; J0690; J1100; J1650; J2060; J2250; J2310; J2370; J2405; J3010; J7030; J7040; J7120; J7626

== ENCOUNTER → 2018-08-17 | Outpatient (CLI) | payer MEDICARE ==
[~2018-08-17] MED LIST: ADVAIR INH; ALBUTEROL INH; CLONIDINE; COUMADIN PO; Coumadin2.5 MG PO; Pentoxifylline400 MG PO; TOCO1000 PO; VERAPAMIL PO; WARF5 PO
== END | disposition home or self-care (01) ==
LOC: LAB SHORT 08:20 → LAB EV 08:20
DX: R30.0 Dysuria (principal)
CPT/HCPCS: 87077; 87086; 87186

== ENCOUNTER → 2018-09-29 | Outpatient (CLI) | payer MEDICARE ==
[2018-09-29 13:55] LABS: Albumin, Blood 3.7 g/dL (3.4-5.0); Albumin/Globulin Ratio 1.1 (0.8-1.8); Bilirubin, Total 1.2 mg/dL (0.1-1.0); Bun/Creatinine Ratio 19.8 (12.0-20.0); Calcium, Blood 8.7 mg/dL (8.5-10.1); Creatinine, Blood 1.21 mg/dL (0.60-1.20); Globulin, Blood 3.5 g/dL (2.2-4.0); Potassium, Blood 3.8 mmol/L (3.5-5.5); Total Protein, Blood 7.2 g/dL (6.4-8.2)
== END | disposition home or self-care (01) ==
LOC: LAB SHORT 13:40 → LAB EV 13:40
PROVIDERS: Physician Assistant
DX: I50.9 Heart failure, unspecified (principal)
CPT/HCPCS: 80053; 83880

== ENCOUNTER 2018-10-09 10:22 | Emergency (ER) | payer MEDICARE ==
[~2018-10-09] VITALS: Ht 182.9 cm; Wt 97.5 kg
== END 2018-10-09 14:34 | disposition home or self-care (01) ==
LOC: ER 10:22
DX: K59.00 Constipation, unspecified (principal); I11.0 Hypertensive heart disease with heart failure; I50.9 Heart failure, unspecified; Z79.899 Other long term (current) drug therapy; Z79.01 Long term (current) use of anticoagulants
CPT/HCPCS: 36415; 74018; 93005; 93010; 99284-25

== ENCOUNTER → 2018-10-30 | Outpatient (CLI) | payer MEDICARE ==
[2018-10-30 12:11] LABS: International Normalized Ratio 2.34
[2018-10-30 12:26] LABS: Calcium, Blood 8.6 mg/dL (8.5-10.1); Creatinine, Blood 1.22 mg/dL (0.60-1.20); Potassium, Blood 3.9 mmol/L (3.5-5.5)
== END | disposition home or self-care (01) ==
LOC: LAB SHORT 11:32 → LAB EV 11:32
PROVIDERS: Family Medicine
DX: I48.91 Unspecified atrial fibrillation (principal)
CPT/HCPCS: 80048; 85610

== ENCOUNTER → 2018-11-20 | Outpatient (CLI) | payer MEDICARE | END | disposition home or self-care (01) | LOC: LAB EV 17:26 → LAB SHORT 17:26 | DX: I48.2 Chronic atrial fibrillation (principal) | CPT/HCPCS: 36416; 85610 ==

== ENCOUNTER 2019-01-08 10:09 | Inpatient (IN) | payer MEDICARE ==
[~2019-01-08] VITALS: Ht 182.9 cm; Wt 101.5 kg
[~2019-01-08 10:09] MED LIST changes: -Pentoxifylline400 MG PO
[2019-01-08] MEDS ORDERED: Pantoprazole So40 MG PO (11:20)
[2019-01-08] MEDS ORDERED: FURO20 PO (11:20)
[2019-01-08] MEDS ORDERED: WARF2 PO (11:20)
[2019-01-08] MEDS ORDERED: METO25 PO (11:21)
[2019-01-08] MEDS ORDERED: CALAN PO (11:21)
[2019-01-08] MEDS ORDERED: POTCHL10ER PO (11:22)
[2019-01-08] MEDS ORDERED: MAGOXI400 PO (11:23)
[2019-01-08] MEDS ORDERED: Pentoxifylline400 MG PO ×2 (11:26→12:28)
[2019-01-08] MEDS ORDERED: ACAMPROSATE CA333 MG PO (12:27)
[2019-01-08 15:53] LABS: Magnesium, Blood 2.1 mg/dL (1.6-2.4); Troponin I <0.015 ng/mL (0.000-0.040)
--- NOTE | 2019-01-08 17:17 | NUR ---
ECHOCARDIOGRAM COMPLETE
--- NOTE | 2019-01-08 18:03 | NUR ---
PATIENT IS ALERT AND ORIENTED AN COOPERATIVE WITH CARE. RT SET UP CONTINUOUS PULSE OXIMETRY, THE ALARM SOUNDS WHEN IT READS THATS HIS HEART RATE IS IN THE 30'S. TELEMETRY IS IN PLACE, HIS RATE AND RHYTHM IS AFIB WITH PVC'S IN THE 50'S ACCORDING TO THE PCU BUILDING CARPENTER. PATIENT STATES HE FEELS MORE WEAK THAN NORMAL TODAY. NO COMPLAINTS. WILL CONTINUE TO MONITOR.
--- NOTE | 2019-01-09 05:41 | NUR ---
SUMMARY: A/OX3-4, SPECIFIES NEEDS BUT POSSIBLY FORGETFULL SO BED ALARM ARMED. PT HAS STEADY BUT SHUFFLED GAIT TO TOILET AND USES URINAL INDEPENDENTLY IN BED. HE'S HAD NO C/O PAIN, CP OR SOB. SCHEDULED DIURETICS RECIEVED FOR CHF AND BLE EDEMA IMPROVING. PT WAS SLIGHTLY HYPERTENSIVE THIS SHIFT BUT ASYMPTOMATIC OF DISTRESS AND MD NOTATED THAT BP/RATE CONTROL MEDS HAVE BEEN HELD FOR BRADYCARDIA AND HOME MED LIST NEEDING FURTHER CLARIFICATION. HE REMAINS AFIB W/PVC'S, RATE 40'S-60'S. CPAP TOLERATED AT HS AND CONT BIOX INTACT. INTERMITTENT WHEEZES HEARD AND RT CONSULTED W/BX MEDS RX'D/RECIEVED. NO ACUTE CHANGES, VSS/AFEBRILE. WCTM AND REPORT TO DAY RN.
[2019-01-09 07:37] LABS: BASOPHILS ABSOLUTE AUTO 0.03 K/mm3 (0.00-0.23); BASOPHILS PERCENT AUTO 1 % (0-2); EOSINOPHILS ABSOLUTE AUTO 0.07 K/mm3 (0.00-0.68); EOSINOPHILS PERCENT AUTO 1 % (0-6); Hematocrit 43.5 % (37.0-53.0); Hemoglobin 14.4 g/dL (13.5-17.5); IMMATURE GRAN ABSOLUTE AUTO 0.01 K/mm3 (0.00-0.10); IMMATURE GRAN PERCENT AUTO 0 % (0-1); LYMPHOCYTES ABSOLUTE AUTO 0.69 K/mm3 (0.84-5.20); LYMPHOCYTES PERCENT AUTO 14 % (21-46); MONOCYTES ABSOLUTE AUTO 0.57 K/mm3 (0.16-1.47); MONOCYTES PERCENT AUTO 12 % (4-13); Mean Corpuscular HGB 34.4 pg (26.0-34.0); Mean Corpuscular HGB Conc 33.1 g/dL (31.5-36.5); Mean Corpuscular Volume 104 fL (80-100); Mean Platelet Volume 9.8 fL (9.1-12.4); NEUTROPHILS ABSOLUTE AUTO 3.48 K/mm3 (1.96-9.15); NEUTROPHILS PERCENT AUTO 72 % (41-73); Platelet Count 180 K/mm3 (150-400); RDW Coefficient Variation 12.2 % (11.7-14.2); RDW Standard Deviation 47.3 fL (35.1-46.3); Red Blood Cell Count 4.19 M/mm3 (4.30-5.90); White Blood Cell Count 4.85 K/mm3 (4.00-11.30)
[2019-01-09 07:49] LABS: International Normalized Ratio 2.38; Prothrombin Time Results 23.3 Sec (9.7-11.5)
[2019-01-09 07:53] LABS: Alanine Aminotransfer (ALT/SGP 16 U/L (12-78); Albumin, Blood 3.5 g/dL (3.4-5.0); Alk Phos 113 U/L (50-136); Anion Gap 5 mmol/L (6-16); Aspartate Aminotrans (AST/SGOT 14 U/L (12-37); Bilirubin, Total 0.9 mg/dL (0.1-1.0); Blood Urea Nitrogen 27 mg/dL (8-24); Bun/Creatinine Ratio 23.1 (12.0-20.0); CO2, Blood 32 mmol/L (21-32); Calcium, Blood 9.1 mg/dL (8.5-10.1); Chloride, Blood 105 mmol/L (98-108); Creatinine, Blood 1.17 mg/dL (0.60-1.20); Globulin, Blood 3.4 g/dL (2.2-4.0); Glomerular Filtration Rate >60 (60-); Glucose, Blood 95 mg/dL (70-99); Potassium, Blood 3.8 mmol/L (3.5-5.5); Sodium, Blood 142 mmol/L (136-145); Total Protein, Blood 6.9 g/dL (6.4-8.2)
[2019-01-09] MEDS ORDERED: Alph-E-Mixed400 UNIT PO (12:32)
[2019-01-09] MEDS ORDERED: FURO40 PO (17:13)
[2019-01-09] MEDS ORDERED: ACET325 PO (17:21)
[2019-01-09] MEDS ORDERED: LISI5 PO (17:22)
[2019-01-09] MEDS ORDERED: ALBU90OI6 INH (17:23)
[2019-01-09] MEDS ORDERED: TIOT18 INH (17:24)
[2019-01-09] MEDS ORDERED: FLUT1DIS5 INH (17:24)
--- NOTE | 2019-01-09 17:50 | NUR ---
DISCHARGE SUMMARY: PATIENT COMFORTABLE THROUGHOUT THE SHIFT. PATIENT DENIED PAIN OR DISCOMFORT. PATIENT DENIED CHEST PAIN, SOB AT REST OR WITH EXERTION, DENIED DIZZINESS OR LIGHTHEADEDNESS. PATIENT EXPERIENCED ELEVATED BP IN THE AM (180/82). MEDICATED WITH NEWLY PRESCRIBED LISINOPRIL. ON RECHECK, BP DOWN TO 135/66. PATIENT UP TO BATHROOM WITH SBA. STABLE ON HIS FEET. TOLERATING THE DIURETICS WELL. NO DIZZINESS OR LIGHTHEADEDNESS. PATIENT DISCHARGED THIS AFTERNOON. DISCHARGE MEDICATIONS FAXED TO [facility] PER PATIENT PREFERANCE. DISCHARGE EDUCATION AND INSTRUCTIONS GIVEN TO PATIENT AND SIGNIFICANT OTHER. ALL QUESTIONS AND CONCERNS ADDRESSED. PATIENT DISCHARGED IN WHEELCHAIR WITH ASSISTANT PARALEGAL. PATIENT STABLE AT TIME OF DISCHARGE.
== END 2019-01-09 17:49 | disposition home or self-care (01) | DRG 305 ==
LOC: ER 10:09 → ERHOLD 10:10 → MEDS 15:16 → ERHOLD 15:16 → MEDS 16:06
PROVIDERS: ADMIT Family Medicine
PROC: 5A09357 Assistance with Respiratory Ventilation, Less than 24 Consecutive Hours, Continuous Positive Airway Pressure (ICD-10-PCS; principal; 2019-01-08)
DX: I13.10 Hypertensive heart and chronic kidney disease without heart failure, with stage 1 through stage 4 chronic kidney disease, or unspecified chronic kidney disease (principal); I50.30 Unspecified diastolic (congestive) heart failure; J44.1 Chronic obstructive pulmonary disease with (acute) exacerbation; G47.33 Obstructive sleep apnea (adult) (pediatric); I48.91 Unspecified atrial fibrillation; I08.1 Rheumatic disorders of both mitral and tricuspid valves; R00.1 Bradycardia, unspecified; M19.90 Unspecified osteoarthritis, unspecified site; M10.9 Gout, unspecified; N18.9 Chronic kidney disease, unspecified; F17.210 Nicotine dependence, cigarettes, uncomplicated; Z92.3 Personal history of irradiation; Z85.819 Personal history of malignant neoplasm of unspecified site of lip, oral cavity, and pharynx; Z79.01 Long term (current) use of anticoagulants; Z79.899 Other long term (current) drug therapy; Z88.2 Allergy status to sulfonamides
CPT/HCPCS: 36415; 71046; 80053; 83735; 83880; 84443; 84484; 85025; 85610; 85730; 93005; 93010; 93306; 94640; 94660; 94760; 94762; 99285-25; J1940

== ENCOUNTER 2019-11-01 17:10 | Emergency (ER) | payer MEDICARE ==
[~2019-11-01] VITALS: Ht 185.4 cm; Wt 111.1 kg
[~2019-11-01 17:10] MED LIST changes: +ACAMPROSATE CA333 MG PO; +ACET325 PO; +ALBU90OI6 INH; +Alph-E-Mixed400 UNIT PO; +CALAN PO; +ENOX100I SC; +FLUT1DIS5 INH; +FLUT1DIS8 INH; +FOLI1; +FURO20 PO; +FURO40 PO; +Isosorbide Mono30 MG PO; +LISI5 PO; +MAGOXI400 PO; +METO25 PO; +POTCHL10ER PO; +PRENATAL TABLE1 EAC2 PO; +Pantoprazole So40 MG PO; +Pentoxifylline400 MG PO; +TIOT18 INH; +WARF2 PO
[2019-11-01 18:08] LABS: BASOPHILS ABSOLUTE AUTO 0.02 K/mm3 (0.00-0.23); BASOPHILS PERCENT AUTO 0 % (0-2); EOSINOPHILS ABSOLUTE AUTO 0.03 K/mm3 (0.00-0.68); EOSINOPHILS PERCENT AUTO 1 % (0-6); Hematocrit 41.6 % (37.0-53.0); Hemoglobin 13.6 g/dL (13.5-17.5); IMMATURE GRAN ABSOLUTE AUTO 0.02 K/mm3 (0.00-0.10); IMMATURE GRAN PERCENT AUTO 0 % (0-1); LYMPHOCYTES ABSOLUTE AUTO 0.77 K/mm3 (0.84-5.20); LYMPHOCYTES PERCENT AUTO 12 % (21-46); MONOCYTES ABSOLUTE AUTO 0.44 K/mm3 (0.16-1.47); MONOCYTES PERCENT AUTO 7 % (4-13); Mean Corpuscular HGB 32.7 pg (26.0-34.0); Mean Corpuscular HGB Conc 32.7 g/dL (31.5-36.5); Mean Corpuscular Volume 100 fL (80-100); Mean Platelet Volume 9.4 fL (9.1-12.4); NEUTROPHILS ABSOLUTE AUTO 4.93 K/mm3 (1.96-9.15); NEUTROPHILS PERCENT AUTO 79 % (41-73); Platelet Count 178 K/mm3 (150-400); RDW Coefficient Variation 13.8 % (11.7-14.2); RDW Standard Deviation 50.8 fL (35.1-46.3); Red Blood Cell Count 4.16 M/mm3 (4.30-5.90); White Blood Cell Count 6.21 K/mm3 (4.00-11.30)
[2019-11-01 18:33] LABS: Albumin, Blood 3.6 g/dL (3.4-5.0); Albumin/Globulin Ratio 0.8 (0.8-1.8); Bilirubin, Total 0.6 mg/dL (0.1-1.0); Bun/Creatinine Ratio 29.1 (12.0-20.0); Calcium, Blood 8.7 mg/dL (8.5-10.1); Creatinine, Blood 1.27 mg/dL (0.60-1.20); Globulin, Blood 4.4 g/dL (2.2-4.0)
== END 2019-11-01 19:53 | disposition home or self-care (01) ==
LOC: ER 17:10
PROVIDERS: Emergency Medicine
DX: B02.9 Zoster without complications (principal); R00.8 Other abnormalities of heart beat; I13.0 Hypertensive heart and chronic kidney disease with heart failure and stage 1 through stage 4 chronic kidney disease, or unspecified chronic kidney disease; N18.9 Chronic kidney disease, unspecified; I50.9 Heart failure, unspecified; I48.91 Unspecified atrial fibrillation; J44.9 Chronic obstructive pulmonary disease, unspecified; Z87.891 Personal history of nicotine dependence; Z88.2 Allergy status to sulfonamides; Z79.01 Long term (current) use of anticoagulants; Z79.899 Other long term (current) drug therapy
CPT/HCPCS: 36415; 71046; 80053; 83690; 83735; 85025; 93005; 93010; 96374; 96375; 99283-25; J2405; J3010

== ENCOUNTER 2020-05-05 11:05 | Day surgery (SDC) | payer MEDICARE ==
[~2020-05-05] VITALS: Ht 185.4 cm; Wt 114.9 kg
[~2020-05-05 11:05] MED LIST changes: +ALBU8HFA2 INH; +ANORO ELLIPTA1 EAC1 INH; +Amlodipine Bes2.5 MG PO; +PANT40 PO; +POTA10T PO
--- NOTE | 2020-05-05 11:48 | NUR ---
05/05/20 1148 Janna Hurd CHARTED BY BOOKER JUÁREZ RN
== END 2020-05-05 14:34 | disposition home or self-care (01) ==
LOC: ORSCSDS 11:05
PROVIDERS: Podiatrist Foot & Ankle Surgery
PROC: 0SGJ04Z Fusion of Left Tarsal Joint with Internal Fixation Device, Open Approach (ICD-10-PCS; principal; 2020-05-05 12:30)
DX: M13.872 Other specified arthritis, left ankle and foot (principal); I10 Essential (primary) hypertension; I48.91 Unspecified atrial fibrillation; Z79.01 Long term (current) use of anticoagulants; J44.9 Chronic obstructive pulmonary disease, unspecified; G47.33 Obstructive sleep apnea (adult) (pediatric); N18.9 Chronic kidney disease, unspecified; Z87.891 Personal history of nicotine dependence; Z79.899 Other long term (current) drug therapy
CPT/HCPCS: C1713; J0171; J0690; J1100; J2250; J2405; J2704; J3010; J7120

== ENCOUNTER 2020-06-12 08:11 | Emergency (ER) | payer MEDICARE ==
[~2020-06-12] VITALS: Ht 182.9 cm; Wt 113.4 kg
[2020-06-12 08:45] LABS: Chloride (POC) 105 mmol/L (98-108); Creatinine (POC) 1.8 mg/dL (0.8-1.3); Glucose (ISTAT POC) 97 mg/dL (70-99); Hemoglobin (POC) 12.9 g/dL (13.5-17.5); Potassium (POC) 4.5 mmol/L (3.5-5.5); Sodium (POC) 140 mmol/L (135-148); Total CO2 (POC) 26 mmol/L (21-32)
[2020-06-12] MEDS ORDERED: COLCHICINE0.6 MG PO (09:12)
[2020-06-12] MEDS ORDERED: Prednisone20 MG PO ×2 (09:12→10:21)
[2020-06-12] MEDS ORDERED: Indomethacin50 MG PO (09:12)
[2020-06-12] MEDS ORDERED: Norco 5-325 Ta1 EACH PO (09:12)
== END 2020-06-12 09:50 | disposition home or self-care (01) ==
LOC: ER 08:11
PROVIDERS: Physician Assistant
DX: M10.9 Gout, unspecified (principal); I13.0 Hypertensive heart and chronic kidney disease with heart failure and stage 1 through stage 4 chronic kidney disease, or unspecified chronic kidney disease; N18.9 Chronic kidney disease, unspecified; I50.9 Heart failure, unspecified; I48.91 Unspecified atrial fibrillation; J44.9 Chronic obstructive pulmonary disease, unspecified; Z88.2 Allergy status to sulfonamides; Z79.01 Long term (current) use of anticoagulants; Z79.899 Other long term (current) drug therapy; Z87.891 Personal history of nicotine dependence
CPT/HCPCS: 80047; 85014; 99283

== ENCOUNTER → 2020-08-27 | Outpatient (CLI) | payer MEDICARE ==
[~2020-08-27] MED LIST changes: +COLCHICINE0.6 MG PO; +Indomethacin50 MG PO; +Norco 5-325 Ta1 EACH PO; +Prednisone20 MG PO
== END | disposition home or self-care (01) ==
LOC: LAB 11:38 → LAB SHORT 11:38
DX: D48.5 Neoplasm of uncertain behavior of skin (principal)
CPT/HCPCS: 88305

== ENCOUNTER → 2020-09-20 | Outpatient (CLI) | payer MEDICARE ==
[2020-09-20 11:42] LABS: BASOPHILS ABSOLUTE AUTO 0.03 K/mm3 (0.00-0.23); BASOPHILS PERCENT AUTO 1 % (0-2); EOSINOPHILS ABSOLUTE AUTO 0.08 K/mm3 (0.00-0.68); EOSINOPHILS PERCENT AUTO 2 % (0-6); Hematocrit 40.9 % (37.0-53.0); Hemoglobin 13.6 g/dL (13.5-17.5); IMMATURE GRAN PERCENT AUTO 0 % (0-1); LYMPHOCYTES ABSOLUTE AUTO 0.69 K/mm3 (0.84-5.20); LYMPHOCYTES PERCENT AUTO 16 % (21-46); MONOCYTES ABSOLUTE AUTO 0.42 K/mm3 (0.16-1.47); MONOCYTES PERCENT AUTO 9 % (4-13); Mean Corpuscular HGB 33.2 pg (26.0-34.0); Mean Corpuscular HGB Conc 33.3 g/dL (31.5-36.5); Mean Corpuscular Volume 100 fL (80-100); Mean Platelet Volume 9.8 fL (9.1-12.4); NEUTROPHILS ABSOLUTE AUTO 3.24 K/mm3 (1.96-9.15); NEUTROPHILS PERCENT AUTO 73 % (41-73); Platelet Count 177 K/mm3 (150-400); RDW Coefficient Variation 13.8 % (11.7-14.2); RDW Standard Deviation 50.5 fL (35.1-46.3); White Blood Cell Count 4.46 K/mm3 (4.00-11.30)
[2020-09-20 12:00] LABS: Albumin, Blood 3.4 g/dL (3.4-5.0); Albumin/Globulin Ratio 0.9 (0.8-1.8); Bilirubin, Total 0.5 mg/dL (0.1-1.0); Bun/Creatinine Ratio 23.8 (12.0-20.0); Calcium, Blood 8.3 mg/dL (8.5-10.1); Creatinine, Blood 1.72 mg/dL (0.60-1.20); Free Thyroxine 1.05 ng/dL (0.70-1.60); Globulin, Blood 3.7 g/dL (2.2-4.0); Potassium, Blood 3.8 mmol/L (3.5-5.5); Thyroid Stimulating Hormone 1.191 uIU/mL (0.360-4.800); Total Protein, Blood 7.1 g/dL (6.4-8.2); Uric Acid, Blood 9.8 mg/dL (3.5-7.2)
== END ==
LOC: PLD 11:37 → LAB 11:37 → LAB SHORT 11:37
PROVIDERS: General Practice
DX: R53.81 Other malaise (principal); Z87.39 Personal history of other diseases of the musculoskeletal system and connective tissue
CPT/HCPCS: 80053; 84439; 84443; 84550; 85025

== ENCOUNTER 2020-12-24 18:36 | Emergency (ER) | payer MEDICARE ==
[~2020-12-24] VITALS: Ht 185.4 cm; Wt 108.9 kg
[2020-12-24 19:55] LABS: BASOPHILS ABSOLUTE AUTO 0.02 K/mm3 (0.00-0.23); BASOPHILS PERCENT AUTO 0 % (0-2); EOSINOPHILS ABSOLUTE AUTO 0.08 K/mm3 (0.00-0.68); EOSINOPHILS PERCENT AUTO 1 % (0-6); Hematocrit 39.7 % (37.0-53.0); Hemoglobin 13.1 g/dL (13.5-17.5); IMMATURE GRAN ABSOLUTE AUTO 0.02 K/mm3 (0.00-0.10); IMMATURE GRAN PERCENT AUTO 0 % (0-1); LYMPHOCYTES PERCENT AUTO 10 % (21-46); MONOCYTES ABSOLUTE AUTO 0.55 K/mm3 (0.16-1.47); MONOCYTES PERCENT AUTO 7 % (4-13); Mean Corpuscular HGB 32.7 pg (26.0-34.0); Mean Corpuscular Volume 99 fL (80-100); Mean Platelet Volume 10.9 fL (9.1-12.4); NEUTROPHILS ABSOLUTE AUTO 6.64 K/mm3 (1.96-9.15); NEUTROPHILS PERCENT AUTO 82 % (41-73); Platelet Count 172 K/mm3 (150-400); RDW Coefficient Variation 14.1 % (11.7-14.2); RDW Standard Deviation 50.4 fL (35.1-46.3); Red Blood Cell Count 4.01 M/mm3 (4.30-5.90); White Blood Cell Count 8.11 K/mm3 (4.00-11.30)
[2020-12-24 20:27] LABS: Albumin, Blood 3.6 g/dL (3.4-5.0); Bilirubin, Total 0.4 mg/dL (0.1-1.0); Bun/Creatinine Ratio 26.9 (12.0-20.0); Calcium, Blood 8.7 mg/dL (8.5-10.1); Creatinine, Blood 2.16 mg/dL (0.60-1.20); Globulin, Blood 3.6 g/dL (2.2-4.0); Potassium, Blood 4.6 mmol/L (3.5-5.5); Total Protein, Blood 7.2 g/dL (6.4-8.2)
[2020-12-24 21:14] LABS: International Normalized Ratio 2.49; Prothrombin Time Results 25.5 Sec (9.7-11.5)
== END 2020-12-24 22:03 | disposition home or self-care (01) ==
LOC: ER 18:36
PROVIDERS: Physician Assistant
DX: R51.9 Headache, unspecified (principal); I10 Essential (primary) hypertension; Z79.01 Long term (current) use of anticoagulants; Z79.899 Other long term (current) drug therapy; Z88.2 Allergy status to sulfonamides; Z87.891 Personal history of nicotine dependence
CPT/HCPCS: 36415; 70450; 80053; 85025; 85610; 93005; 93010; 96374; 96375; 99284-25; J0780; J1200; J7030

== ENCOUNTER → 2020-12-30 | Outpatient (CLI) | payer MEDICARE | END | disposition home or self-care (01) | LOC: LAB 12:18 → OLS 12:18 → LAB SHORT 12:18 | DX: R51.9 Headache, unspecified (principal) | CPT/HCPCS: 36415; 85651 ==

== ENCOUNTER → 2021-04-23 | Outpatient (CLI) | payer MEDICARE | END | disposition home or self-care (01) | LOC: LAB 14:33 → LAB SHORT 14:33 | DX: N39.0 Urinary tract infection, site not specified (principal) | CPT/HCPCS: 87077; 87086; 87186 ==

== ENCOUNTER 2021-05-27 10:26 | Day surgery (SDC) | payer MEDICARE ==
[~2021-05-27] VITALS: Ht 182.9 cm; Wt 110.0 kg
[~2021-05-27 10:26] MED LIST changes: +ANORO ELLIPTA1 EACH INH
[2021-05-27 11:13] LABS: BASOPHILS ABSOLUTE AUTO 0.02 K/mm3 (0.00-0.23); BASOPHILS PERCENT AUTO 1 % (0-2); EOSINOPHILS ABSOLUTE AUTO 0.05 K/mm3 (0.00-0.68); EOSINOPHILS PERCENT AUTO 1 % (0-6); Hematocrit 38.5 % (37.0-53.0); Hemoglobin 12.6 g/dL (13.5-17.5); IMMATURE GRAN ABSOLUTE AUTO 0.01 K/mm3 (0.00-0.10); IMMATURE GRAN PERCENT AUTO 0 % (0-1); LYMPHOCYTES ABSOLUTE AUTO 0.54 K/mm3 (0.84-5.20); LYMPHOCYTES PERCENT AUTO 13 % (21-46); MONOCYTES ABSOLUTE AUTO 0.35 K/mm3 (0.16-1.47); MONOCYTES PERCENT AUTO 8 % (4-13); Mean Corpuscular HGB 34.3 pg (26.0-34.0); Mean Corpuscular HGB Conc 32.7 g/dL (31.5-36.5); Mean Corpuscular Volume 105 fL (80-100); Mean Platelet Volume 10.5 fL (9.1-12.4); NEUTROPHILS PERCENT AUTO 77 % (41-73); Platelet Count 153 K/mm3 (150-400); RDW Coefficient Variation 13.9 % (11.7-14.2); RDW Standard Deviation 53.3 fL (35.1-46.3); Red Blood Cell Count 3.67 M/mm3 (4.30-5.90); White Blood Cell Count 4.17 K/mm3 (4.00-11.30)
[2021-05-27] MEDS ORDERED: METO25 (11:16)
[2021-05-27 11:29] LABS: Bun/Creatinine Ratio 25.6 (12.0-20.0); Calcium, Blood 8.6 mg/dL (8.5-10.1); Creatinine, Blood 1.6 mg/dL (0.60-1.20); Potassium, Blood 4.3 mmol/L (3.5-5.5)
[2021-05-27 11:34] LABS: International Normalized Ratio 1.52; Prothrombin Time Results 15.5 Sec (9.7-11.5)
--- NOTE | 2021-05-27 13:29 | NUR ---
PT RETURNED BACK TO RECOVERY ROOM IN RECLINER. RIGHT RADIAL TR BAND SITE SOFT NON-TENDER WITH NO HEMATOMA, NO PULSATILE BLEEDING AND WRIST BOARD IN PLACE. CALL LIGHT IN REACH. PT DENIES CHEST PAIN.
--- NOTE | 2021-05-27 15:15 | NUR ---
3mL AIR RELEASED FROM TR BAND. NO BLEEDING, OOZING OR HEMATOMA NOTED. PT DENIES ANY PAIN. WILL CONTINUE UP TO MONITOR.
--- NOTE | 2021-05-27 15:20 | NUR ---
ALL AIR RELEASED FROM TR BAND. NO BLEEDING, OOZING OR HEMATOMA NOTED. PT DENIES ANY PAIN. VSS. WILL CONTINUE TO MONITOR.
--- NOTE | 2021-05-27 16:41 | NUR ---
DISCHARGE PT DRESSED SELF WITH NO COMPLICATIONS. TR BAND REMOVED. NO BLEEDING, OOZING OR HEMATOMA NOTED. SITE CLEANED. CLOTH DRESSING APPLIED TO SITE. WHITE BOARD PLACED ON ARM AND ARM PLACED IN A SLING. PT DENIES ANY PAIN. PT AND STATE THEIR UNDERSTANDING OF BOTH DISCHARGE AND SITE CARE INSTRUCTIONS AND DENY ANY QUESTIONS OR CONCERNS. VSS. IV DCD WITH CATH INTACT. PT TAKEN TO EXIT VIA WHEELCHAIR WHERE WAS WAITING WITH CAR.
== END 2021-05-27 14:15 | disposition home or self-care (01) ==
LOC: MHTC 10:26
PROVIDERS: Internal Medicine Cardiovascular Disease
DX: I25.10 Atherosclerotic heart disease of native coronary artery without angina pectoris (principal); I50.9 Heart failure, unspecified
CPT/HCPCS: 36415; 80048; 85025; 85347; 85610; 93454; 93571; 99152; 99153; C1769; C1887; C1894; J1644; J2250; J3010; J7030; J7050; Q9967

== ENCOUNTER 2021-07-15 13:34 | Emergency (ER) | payer MEDICARE ==
[~2021-07-15] VITALS: Ht 185.4 cm; Wt 106.6 kg
[~2021-07-15 13:34] MED LIST changes: +METO25
[2021-07-15 14:24] LABS: BASOPHILS ABSOLUTE AUTO 0.02 K/mm3 (0.00-0.23); BASOPHILS PERCENT AUTO 0 % (0-2); EOSINOPHILS ABSOLUTE AUTO 0.04 K/mm3 (0.00-0.68); EOSINOPHILS PERCENT AUTO 1 % (0-6); Hematocrit 39.2 % (37.0-53.0); Hemoglobin 12.8 g/dL (13.5-17.5); IMMATURE GRAN ABSOLUTE AUTO 0.04 K/mm3 (0.00-0.10); IMMATURE GRAN PERCENT AUTO 1 % (0-1); LYMPHOCYTES ABSOLUTE AUTO 0.63 K/mm3 (0.84-5.20); LYMPHOCYTES PERCENT AUTO 13 % (21-46); MONOCYTES ABSOLUTE AUTO 0.29 K/mm3 (0.16-1.47); MONOCYTES PERCENT AUTO 6 % (4-13); Mean Corpuscular HGB 34.9 pg (26.0-34.0); Mean Corpuscular HGB Conc 32.7 g/dL (31.5-36.5); Mean Corpuscular Volume 107 fL (80-100); Mean Platelet Volume 10.8 fL (9.1-12.4); NEUTROPHILS ABSOLUTE AUTO 4.04 K/mm3 (1.96-9.15); NEUTROPHILS PERCENT AUTO 80 % (41-73); Platelet Count 169 K/mm3 (150-400); RDW Coefficient Variation 15.9 % (11.7-14.2); RDW Standard Deviation 63.7 fL (35.1-46.3); Red Blood Cell Count 3.67 M/mm3 (4.30-5.90); White Blood Cell Count 5.06 K/mm3 (4.00-11.30)
[2021-07-15 14:49] LABS: Alanine Aminotransfer (ALT/SGP 30 U/L (12-78); Albumin, Blood 3.6 g/dL (3.4-5.0); Albumin/Globulin Ratio 1.2 (0.8-1.8); Alk Phos 111 U/L (50-136); Anion Gap 13 mmol/L (6-16); Aspartate Aminotrans (AST/SGOT 42 U/L (12-37); Bilirubin, Total 0.8 mg/dL (0.1-1.0); Blood Urea Nitrogen 55 mg/dL (8-24); Bun/Creatinine Ratio 19.2 (12.0-20.0); CO2, Blood 21 mmol/L (21-32); Chloride, Blood 107 mmol/L (98-108); Creatinine, Blood 2.87 mg/dL (0.60-1.20); Globulin, Blood 3.1 g/dL (2.2-4.0); Glomerular Filtration Rate 22 (60-); Glucose, Blood 160 mg/dL (70-99); Potassium, Blood 4.4 mmol/L (3.5-5.5); Sodium, Blood 141 mmol/L (136-145); Total Protein, Blood 6.7 g/dL (6.4-8.2); Troponin I <0.015 ng/mL (0.000-0.040)
[2021-07-15 19:27] LABS: Source, Urine Clean Catch
[2021-07-15 19:31] LABS: Appearance, Urine Clear (Clear); Bilirubin, Urine Neg (Neg); Blood, Urine 4+ (Neg); Color, Urine Yellow (P-Yellow); Glucose Qualitative, Urine Neg (Neg); Ketones, Urine Neg (Neg); Leukocyte Esterase, Urine 1+ (Neg); Nitrite, Urine Neg (Neg); Protein, Urine Neg (Neg); Urobilinogen, Urine NORM (Normal)
[2021-07-15 19:37] LABS: Red Blood Cells, Urine 25-50 /hpf (0-2); Squamous Epithelial Cells Few /hpf (Few)
[2021-07-15 19:38] LABS: Amorphous Light (0-Heavy); Bacteria Many /hpf; Mucus Light (0-Heavy); WBC Cast Not Seen /lpf (0)
== END 2021-07-15 20:18 | disposition home or self-care (01) ==
LOC: ER 13:34
PROVIDERS: Emergency Medicine; Physician Assistant
DX: E86.0 Dehydration (principal); I12.9 Hypertensive chronic kidney disease with stage 1 through stage 4 chronic kidney disease, or unspecified chronic kidney disease; N18.9 Chronic kidney disease, unspecified; R79.1 Abnormal coagulation profile; R79.89 Other specified abnormal findings of blood chemistry; R42 Dizziness and giddiness; Z88.2 Allergy status to sulfonamides; Z79.01 Long term (current) use of anticoagulants; Z79.899 Other long term (current) drug therapy
CPT/HCPCS: 36415; 70450; 71046; 80053; 81001; 84484; 85025; 87077; 87086; 87186; 93005; 93010; 96374; 99284-25; A9270; J2405; J7120

== ENCOUNTER 2021-10-06 10:33 | Day surgery (SDC) | payer MEDICARE ==
[~2021-10-06] VITALS: Ht 182.9 cm; Wt 102.0 kg
--- NOTE | 2021-10-06 15:17 | NUR ---
pt to recovery post procedure. pt resting in bed. a&ox4. report from lluvia barragan. pt has angioseal to r femoral artery. no bleeding noted. pt also has pressure dressing to l pedal access site. no bleeding noted.
--- NOTE | 2021-10-06 15:45 | NUR ---
SMALL AMOUNT OF OOZING NOTED AT LEFT PT SITE. PRESSURE DRESSING PLACED OVER LEFT PT SITE. PT DENIES PAIN OR DISCOMFORT AT AREA.
--- NOTE | 2021-10-06 16:55 | NUR ---
DR MORALES AT BEDSIDE SPEAKING WITH PT AND SPOUSE ABOUT PROCEDURE AND PLAN OF CARE. LEFT PT SITE CONTINUES TO HAVE SLIGHT OOZE. PT WILL BE SENT HOME WITH PRESSURE DRESSING IN PLACE AND INSTRUCTIONS FOR CARE OF SITE AT HOME. DR MORALES AWARE.
--- NOTE | 2021-10-06 17:14 | NUR ---
IC DC'D, CATH INTACT. PT AND SPOUSE VERBALIZED UNDERSTANDING OF DC INSTRUCTIONS AND FOLLOW UP INFORMATION. RIGHT GROIN SITE SOFT AND NON-TENDER. NO BLEEDING OR SWELLING AT SITE. LEFT PT SITE WITH PRESSURE DRESSING IN PLACE. NO APPEARANCE OF BLEEDING OR SWELLING UNDER DRESSING. PT OUT TO CAR VIA WHEELCHAIR. ACCOMPANIED BY SPOUSE.
== END 2021-10-06 17:10 | disposition home or self-care (01) ==
LOC: MHTC 10:33
DX: I70.223 Atherosclerosis of native arteries of extremities with rest pain, bilateral legs (principal); I11.0 Hypertensive heart disease with heart failure; I50.22 Chronic systolic (congestive) heart failure; J44.9 Chronic obstructive pulmonary disease, unspecified; I49.9 Cardiac arrhythmia, unspecified; Z87.891 Personal history of nicotine dependence; Z88.2 Allergy status to sulfonamides; Z88.1 Allergy status to other antibiotic agents
CPT/HCPCS: 37224; 37229; 37232; 75625; 75716; 75774; 76937; 85347; 99152; 99153; C1725; C1760; C1769; C1885; C1887; C1894; C2623; J1644; J2250; J3010; J7030; J7050; Q9967

== ENCOUNTER → 2021-10-15 | Outpatient (CLI) | payer MEDICARE ==
[~2021-10-15] MED LIST changes: +ALLO100 PO
[2021-10-15 12:14] LABS: International Normalized Ratio 2.09; Prothrombin Time Results 20.9 Sec (9.7-11.5)
== END | disposition home or self-care (01) ==
LOC: LAB SHORT 10:37 → LAB 10:37 → LAB FUT 10-12 16:30
PROVIDERS: Nurse Practitioner Family
DX: I48.91 Unspecified atrial fibrillation (principal)
CPT/HCPCS: 36415; 85610

== ENCOUNTER 2022-03-29 16:42 | Emergency (ER) | payer MEDICARE ==
[~2022-03-29] VITALS: Ht 182.9 cm; Wt 104.3 kg
[2022-03-29 17:31] LABS: BASOPHILS ABSOLUTE AUTO 0.01 K/mm3 (0.00-0.23); BASOPHILS PERCENT AUTO 0 % (0-2); EOSINOPHILS ABSOLUTE AUTO 0.07 K/mm3 (0.00-0.68); EOSINOPHILS PERCENT AUTO 2 % (0-6); Hematocrit 36.9 % (37.0-53.0); Hemoglobin 12.4 g/dL (13.5-17.5); IMMATURE GRAN ABSOLUTE AUTO 0.01 K/mm3 (0.00-0.10); IMMATURE GRAN PERCENT AUTO 0 % (0-1); LYMPHOCYTES ABSOLUTE AUTO 0.63 K/mm3 (0.84-5.20); LYMPHOCYTES PERCENT AUTO 14 % (21-46); MONOCYTES ABSOLUTE AUTO 0.38 K/mm3 (0.16-1.47); MONOCYTES PERCENT AUTO 8 % (4-13); Mean Corpuscular HGB 37.3 pg (26.0-34.0); Mean Corpuscular HGB Conc 33.6 g/dL (31.5-36.5); Mean Corpuscular Volume 111 fL (80-100); Mean Platelet Volume 10.1 fL (9.1-12.4); NEUTROPHILS ABSOLUTE AUTO 3.48 K/mm3 (1.96-9.15); NEUTROPHILS PERCENT AUTO 76 % (41-73); Platelet Count 166 K/mm3 (150-400); RDW Coefficient Variation 13.9 % (11.7-14.2); RDW Standard Deviation 57.3 fL (35.1-46.3); Red Blood Cell Count 3.32 M/mm3 (4.30-5.90); White Blood Cell Count 4.58 K/mm3 (4.00-11.30)
[2022-03-29 17:45] LABS: International Normalized Ratio 1.59; Prothrombin Time Results 16.2 Sec (9.7-11.5)
== END 2022-03-29 20:48 | disposition home or self-care (01) ==
LOC: ER 16:42
PROVIDERS: Physician Assistant
DX: R04.0 Epistaxis (principal); I10 Essential (primary) hypertension; Z79.01 Long term (current) use of anticoagulants; Z79.899 Other long term (current) drug therapy; Z87.891 Personal history of nicotine dependence; Z96.653 Presence of artificial knee joint, bilateral
CPT/HCPCS: 36415; 85025; 85610; A9270

== ENCOUNTER → 2022-08-02 | Outpatient (CLI) | payer MEDICARE ==
[2022-08-02 10:55] LABS: BASOPHILS ABSOLUTE AUTO 0.03 K/mm3 (0.00-0.23); BASOPHILS PERCENT AUTO 0 % (0-2); Bun/Creatinine Ratio 28.6 (12.0-20.0); Calcium, Blood 8.4 mg/dL (8.5-10.1); Creatinine, Blood 1.4 mg/dL (0.60-1.20); EOSINOPHILS ABSOLUTE AUTO 0.06 K/mm3 (0.00-0.68); EOSINOPHILS PERCENT AUTO 1 % (0-6); Hematocrit 37.1 % (37.0-53.0); Hemoglobin 12.4 g/dL (13.5-17.5); IMMATURE GRAN ABSOLUTE AUTO 0.02 K/mm3 (0.00-0.10); IMMATURE GRAN PERCENT AUTO 0 % (0-1); LYMPHOCYTES ABSOLUTE AUTO 0.64 K/mm3 (0.84-5.20); LYMPHOCYTES PERCENT AUTO 8 % (21-46); MONOCYTES ABSOLUTE AUTO 0.48 K/mm3 (0.16-1.47); MONOCYTES PERCENT AUTO 6 % (4-13); Mean Corpuscular HGB 36.7 pg (26.0-34.0); Mean Corpuscular HGB Conc 33.4 g/dL (31.5-36.5); Mean Corpuscular Volume 110 fL (80-100); NEUTROPHILS ABSOLUTE AUTO 7.16 K/mm3 (1.96-9.15); NEUTROPHILS PERCENT AUTO 85 % (41-73); Platelet Count 182 K/mm3 (150-400); Potassium, Blood 4.5 mmol/L (3.5-5.5); RDW Coefficient Variation 14.6 % (11.7-14.2); RDW Standard Deviation 58.9 fL (35.1-46.3); Red Blood Cell Count 3.38 M/mm3 (4.30-5.90); White Blood Cell Count 8.39 K/mm3 (4.00-11.30)
[2022-08-02 11:31] LABS: International Normalized Ratio 2.3; Prothrombin Time Results 22.9 Sec (9.7-11.5)
== END | disposition home or self-care (01) ==
LOC: LAB SHORT 10:37
PROVIDERS: Emergency Medicine
DX: Z79.01 Long term (current) use of anticoagulants (principal); Z51.81 Encounter for therapeutic drug level monitoring; R06.00 Dyspnea, unspecified
CPT/HCPCS: 80048; 84484; 85025; 85610

== ENCOUNTER 2022-10-20 06:51 | Inpatient (IN) | payer MEDICARE ==
[~2022-10-20] VITALS: Ht 182.9 cm; Wt 101.8 kg
[~2022-10-20 06:51] MED LIST changes: +METO50ER PO
[2022-10-20] MEDS ORDERED: Ventolin/Prove6.7 GM (07:30)
[2022-10-20] MEDS ORDERED: XARELTO20 MG PO (07:30)
[2022-10-20 07:41] LABS: BASOPHILS ABSOLUTE AUTO 0.03 K/mm3 (0.00-0.23); BASOPHILS PERCENT AUTO 1 % (0-2); EOSINOPHILS ABSOLUTE AUTO 0.08 K/mm3 (0.00-0.68); EOSINOPHILS PERCENT AUTO 2 % (0-6); Hemoglobin 11.8 g/dL (13.5-17.5); IMMATURE GRAN ABSOLUTE AUTO 0.01 K/mm3 (0.00-0.10); IMMATURE GRAN PERCENT AUTO 0 % (0-1); LYMPHOCYTES ABSOLUTE AUTO 0.55 K/mm3 (0.84-5.20); LYMPHOCYTES PERCENT AUTO 12 % (21-46); MONOCYTES ABSOLUTE AUTO 0.36 K/mm3 (0.16-1.47); MONOCYTES PERCENT AUTO 8 % (4-13); Mean Corpuscular HGB 34.5 pg (26.0-34.0); Mean Corpuscular HGB Conc 31.9 g/dL (31.5-36.5); Mean Corpuscular Volume 108 fL (80-100); Mean Platelet Volume 9.9 fL (9.1-12.4); NEUTROPHILS ABSOLUTE AUTO 3.53 K/mm3 (1.96-9.15); NEUTROPHILS PERCENT AUTO 77 % (41-73); Platelet Count 198 K/mm3 (150-400); RDW Coefficient Variation 13.5 % (11.7-14.2); RDW Standard Deviation 53.8 fL (35.1-46.3); Red Blood Cell Count 3.42 M/mm3 (4.30-5.90); White Blood Cell Count 4.56 K/mm3 (4.00-11.30)
[2022-10-20 08:09] LABS: Albumin, Blood 3.3 g/dL (3.4-5.0); Albumin/Globulin Ratio 0.9 (0.8-1.8); Bilirubin, Total 0.6 mg/dL (0.1-1.0); Bun/Creatinine Ratio 16.5 (12.0-20.0); Calcium, Blood 9.1 mg/dL (8.5-10.1); Creatinine, Blood 1.15 mg/dL (0.60-1.20); Globulin, Blood 3.7 g/dL (2.2-4.0); Magnesium, Blood 2.1 mg/dL (1.6-2.4); Potassium, Blood 4.2 mmol/L (3.5-5.5)
[2022-10-20 09:45] LABS: Base Excess Venous -3.3 mmol/L; Bicarbonate Venous 21.2 mmol/L (24.0-30.0); PCO2 Venous 54.9 mmHg (38-42); pH Blood Venous 7.25 (7.34-7.37)
[2022-10-20 10:42] LABS: Base Excess Venous -2.5 mmol/L; Bicarbonate Venous 21.6 mmol/L (24.0-30.0); PCO2 Venous 47.9 mmHg (38-42); pH Blood Venous 7.31 (7.34-7.37)
[2022-10-20 13:16] VITALS: BP 137/69
--- NOTE | 2022-10-20 13:26 | NUR ---
ADMIT RN NOTE MR ATKINS WAS ADMITTED TO MEDICAL UNIT FROM ER AT 1230HRS. ON ROOM AIR, STOOD TO TRANSFER TO GET INTO BED WHICH CAUSED SOME SOB, QUICKLY RECOVERED ON RESTING. BLE EDEMA NOTED. PAS APPLIED. PT DENIES ANY PAIN OR DISCOMFORT. TELE PLACED - AFIB 98 PER [facility] [employer] [facility]. EDUCATED ON IS AND HAS GOT UP TO 800ML WITH GOOD TECHNIQUE. DNR BRACELET APPLIED. PT EDUCATED ON FLUID RESTRICTION. HE AGREED TO CALL BEFORE GETTING UP OUT OF BED. CALL LIGHT IN REACH, BED LOW. PT ORIENTATED AND CALM.
[2022-10-20 15:05] VITALS: BP 113/84
--- NOTE | 2022-10-20 15:31 | NUR ---
CALL CALL FROM [facility] INFORMING OF FRQUENT PVC, SEVERAL RUNS OF [address] PVCS [address] VANG CALLED, MESSAGE LEFT.
--- NOTE | 2022-10-20 18:21 | NUR ---
SHIFT SUMMARY TELE AFIB WITH EARLIER PVCS. CALL FROM [employer] A FEW MINUTES AGO FOR 16 SECOND RUN OF [place]. DR PURVIS CALLED AND NOTIFIED - NO NEW ORDERS AT THIS TIME. MR ATKINS SAID OVERALL HE'S FEELING LIKE HIS BREATHING IS IMPROVING SINCE HE ARRIVED. HE GOT SOME SLEEP THIS AFTERNOON. NO CHEST PAIN OR DISCOMFORT. BED LOW, CALL LIGHT IN REACH.
[2022-10-20 19:50] VITALS: BP 123/62
[2022-10-21 03:58] VITALS: BP 148/87
[2022-10-21 04:57] LABS: BASOPHILS ABSOLUTE AUTO 0.01 K/mm3 (0.00-0.23); BASOPHILS PERCENT AUTO 0 % (0-2); EOSINOPHILS PERCENT AUTO 0 % (0-6); Hemoglobin 10.6 g/dL (13.5-17.5); IMMATURE GRAN ABSOLUTE AUTO 0.03 K/mm3 (0.00-0.10); IMMATURE GRAN PERCENT AUTO 0 % (0-1); LYMPHOCYTES ABSOLUTE AUTO 0.22 K/mm3 (0.84-5.20); LYMPHOCYTES PERCENT AUTO 3 % (21-46); MONOCYTES ABSOLUTE AUTO 0.12 K/mm3 (0.16-1.47); MONOCYTES PERCENT AUTO 1 % (4-13); Mean Corpuscular HGB 34.3 pg (26.0-34.0); Mean Corpuscular HGB Conc 32.1 g/dL (31.5-36.5); Mean Corpuscular Volume 107 fL (80-100); Mean Platelet Volume 9.9 fL (9.1-12.4); NEUTROPHILS ABSOLUTE AUTO 8.39 K/mm3 (1.96-9.15); NEUTROPHILS PERCENT AUTO 96 % (41-73); Platelet Count 188 K/mm3 (150-400); RDW Coefficient Variation 13.6 % (11.7-14.2); RDW Standard Deviation 54.3 fL (35.1-46.3); Red Blood Cell Count 3.09 M/mm3 (4.30-5.90); White Blood Cell Count 8.77 K/mm3 (4.00-11.30)
--- NOTE | 2022-10-21 05:35 | NUR ---
SHIFT SUMMARY 72 YR M ADMITTED ON 10/20/22 FOR CHF/COPD EXACERBATION. DNR. NO ACUTE CHANGES THIS SHIFT. DR PURVIS CALLED BACK AFTER DAY SHIFT CALLED TO REPORT CHANGES IN TELE AND ADVISED THIS NURSE TO PUT IN AN ORDER FOR 12.5 MG LOPRESSOR ONE TIME STAT. NEW ORDER OF LOPRESSOR STARTS THIS A.M. PER EXECUTIVE MANAGER, LATE IN THIS SHIFT THE PT EXHIBITED BEHAVIOR THAT SUGGESTED HE WAS CONFUSED, SUCH HAVING HIS GOWN ON BACKWARDS. NO CALLS FROM TELE MONITOR THIS SHIFT.
[2022-10-21 05:48] LABS: Alanine Aminotransfer (ALT/SGP 17 U/L (12-78); Albumin/Globulin Ratio 0.9 (0.8-1.8); Alk Phos 116 U/L (50-136); Anion Gap Unable to Calculate mmol/L (6-16); Aspartate Aminotrans (AST/SGOT 15 U/L (12-37); Bilirubin, Total 0.6 mg/dL (0.1-1.0); Blood Urea Nitrogen 30 mg/dL (8-24); Bun/Creatinine Ratio 19.5 (12.0-20.0); CO2, Blood 27 mmol/L (21-32); Calcium, Blood 8.7 mg/dL (8.5-10.1); Chloride, Blood 112 mmol/L (98-108); Creatinine, Blood 1.54 mg/dL (0.60-1.20); Globulin, Blood 3.3 g/dL (2.2-4.0); Glomerular Filtration Rate 47 (60-); Glucose, Blood 168 mg/dL (70-99); Sodium, Blood 138 mmol/L (136-145); Total Protein, Blood 6.3 g/dL (6.4-8.2)
[2022-10-21 07:37] VITALS: BP 137/87
--- NOTE | 2022-10-21 09:44 | NUR ---
Smith supportive visit this AM. Pt is known to this lead technical writer from previous hospital stay. Pt sitting in chair upon arrival. Pt A&O and denies pain at this time. Spouse at bedside. Pt appears much improved from last hospital stay. Listened as Pt and spouse report when D/C from hospital last he was on hospice services then stabalized and taken off hospice. Continued therapeutic listening. Pt able to move about the house independently, bathe and dress himself. Pt also able to cook for himself. Pt and spouse express appreciation and report no concerns at this time. Palliative Care will remain available
[2022-10-21 15:32] VITALS: BP 140/76
--- NOTE | 2022-10-21 18:11 | NUR ---
SHIFT SUMMARY NO ACUTE CHANGES THIS SHIFT. PATIENT SLIGHLTY MORE CONFUSED WHEN SPOUSE LEFT THIS AFTERNOON, PEED IN WATER CUP AT ONE POINT. A&O X3 FOR THE MOST PART. IV ABX PER EMAR. EATING, DRINKING, & VOIDING W/O DIFFICULTY. UP TO CHAIR FOR MEALS. CALL LIGHT IN REACH, WILL REPORT TO ONCOMING RN AT 1900.
[2022-10-21 19:28] VITALS: BP 149/63
--- NOTE | 2022-10-22 04:43 | NUR ---
SHIFT SUMMARY 72 YR M ADMITTED ON 10/20/22 FOR CHF/COPD EXACERBATION. DNR. PT BECAME AGGITATED THIS SHIFT STATING THAT HE WAS TIRED OF BEING TOLD WHAT TO DO AND THAT HE WANTED TO GO HOME. HE PULLED HIS TELE OFF MULTIPLE TIMES AND FINALLY REFUSED TO LET ME PUT IT BACK ON SO HOSPITALIST WAS CONTACTED AND TELE WAS DC'D. HE ALSO REFUSED TO TAKE ANY MEDS THIS SHIFT STATING THAT HE DID NOT NEED THEM BECAUSE HE WAS GOING HOME. HE ATTEMPTED TO PULL OUT HIS IV BUT HE WAS REDIRECTED AND IT WAS WRAPPED WITH COBAN. HE PULLED TO COBAN OFF TWICE BUT DID NOT PULL THE IV. IT WAS REWRAPPED AGIN. HE TOOK OFF ALL HIS CLOTHS AND HAS BEEN NAKED FOR MOST OF THIS SHIFT. HE HAS SLEPT OFF AND ON AND IS UP TO THE BATHROOM INDEPENDANTLY.
[2022-10-22 06:04] LABS: BASOPHILS ABSOLUTE AUTO 0.01 K/mm3 (0.00-0.23); BASOPHILS PERCENT AUTO 0 % (0-2); EOSINOPHILS ABSOLUTE AUTO 0.01 K/mm3 (0.00-0.68); EOSINOPHILS PERCENT AUTO 0 % (0-6); Hematocrit 33.1 % (37.0-53.0); Hemoglobin 10.7 g/dL (13.5-17.5); IMMATURE GRAN ABSOLUTE AUTO 0.04 K/mm3 (0.00-0.10); IMMATURE GRAN PERCENT AUTO 0 % (0-1); LYMPHOCYTES ABSOLUTE AUTO 0.38 K/mm3 (0.84-5.20); LYMPHOCYTES PERCENT AUTO 4 % (21-46); MONOCYTES ABSOLUTE AUTO 0.57 K/mm3 (0.16-1.47); MONOCYTES PERCENT AUTO 5 % (4-13); Mean Corpuscular HGB 34.7 pg (26.0-34.0); Mean Corpuscular HGB Conc 32.3 g/dL (31.5-36.5); Mean Corpuscular Volume 108 fL (80-100); NEUTROPHILS ABSOLUTE AUTO 9.94 K/mm3 (1.96-9.15); NEUTROPHILS PERCENT AUTO 91 % (41-73); Platelet Count 212 K/mm3 (150-400); RDW Standard Deviation 55.2 fL (35.1-46.3); Red Blood Cell Count 3.08 M/mm3 (4.30-5.90); White Blood Cell Count 10.95 K/mm3 (4.00-11.30)
[2022-10-22 06:37] LABS: Albumin/Globulin Ratio 0.9 (0.8-1.8); Bilirubin, Total 0.5 mg/dL (0.1-1.0); Bun/Creatinine Ratio 20.7 (12.0-20.0); Creatinine, Blood 1.88 mg/dL (0.60-1.20); Globulin, Blood 3.3 g/dL (2.2-4.0); Potassium, Blood 3.9 mmol/L (3.5-5.5); Total Protein, Blood 6.3 g/dL (6.4-8.2)
[2022-10-22 07:59] VITALS: BP 148/94
--- NOTE | 2022-10-22 17:07 | NUR ---
SHIFT SUMMARY: PATIENT A&OX3. COULD NOT RECALL THE SPICIFIC DAY, DATE, AND MONTH BUT KNOWS THE YEAR. CALM, PLEASANT AND COOPERATIVE c CARE. PATIENT DENIES CP/PRESSURE, N/V AND GENERALIZED PAIN. PATIENT ON RA c SPO2 RANGES 96-98% T/O SHIFT. LUNGS HAS EXPIRATORY WHEEZES T/O TO AUSCULTATION. PLUS 2 EDEMA TO BLE'S. RECEIVED SCHEDULED MEDS PER EMAR. PATIENT WORK c PT MOBILITY TODAY. PER PT PATIENT AT BASELINE D/C HOME PRIOR TO LIVING SITUATIONS c NO FURTHER FOLLOW TX. PATIENT IS CONTINENT OF URINE AND STOOL, AMBULATES TO BATHROOM SBA/INDEPENDENTLY WITHOUT USING ANY ASSISTIVE DEVICES. PT ON 1500 FR; TOTAL URINE OUTPUT 750 AND 2 UNMEASURED VOID. VITAL SIGNS REVIEWED. IV TO L FOREARM INFUSING ABX AT THIS TIME. CALL LIGHT IN REACH.
[2022-10-22 17:55] VITALS: BP 137/77
[2022-10-22 21:33] VITALS: BP 148/84
--- NOTE | 2022-10-22 23:34 | NUR ---
PATIENT HAVING INCREASED CONFUSION ACTIVATING BED ALARM. NO WANTING TO GO SLEEP AT THIS TIME. PATIENT PULLING AT PIV. PATIENT NOT ABLE TO FOLLOW DIRECTIONS AT THIS TIME. WCTM.
--- NOTE | 2022-10-23 02:11 | NUR ---
PATIENT REMAINS CONFUSED. NOT ABLE TO FOLLOW DIRECTION OR ORIENT AT THIS TIME. ACTIVATING BED ALARM T/O SHIFT GETTING OUT OF BED. WCTM.
[2022-10-23 02:21] VITALS: BP 172/94
[2022-10-23 02:29] VITALS: BP 162/115
--- NOTE | 2022-10-23 04:18 | NUR ---
SHIFT SUMMARY PATIENT CONFUSED THROUGHOUT SHIFT. AXOX 2 AND SBA W/FWW TO BR. ON ROOM AIR. TRIED PULLING OUT PIV MULTIPLE TIMES. PATIENT HAD OUT OF BED ATTEMPTS THROUGHTOUT SHIFT ACTIVATING ALARM. IV ABX INFUSED. NOT ABLE TO FOLLOW DIRECTIONS OR ORIENT AT THIS TIME. DENIES CHEST PAIN, SOB, AND N/V. VSS/AFEBRILE. FLUID RESTRICTION 1,500 mL. 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 HE DID TRY TO GO INTO ANOTHER PATIENT ROOM. PATIENT HAS NOT SLEPT EVEN WHEN OFFERED TO ASSIST GETTING INTO BED AND GETTING COMFORTABLE. CALL LIGHT IN REACH. BED IN LOWEST POSITION AND ALARM ACTIVATED. WILL CONTINUE TO MONITOR UNTIL DAY SHIFT NURSE ASSUMES CARE.
[2022-10-23 04:37] LABS: BASOPHILS PERCENT AUTO 0 % (0-2); EOSINOPHILS PERCENT AUTO 0 % (0-6); Hematocrit 35.7 % (37.0-53.0); Hemoglobin 11.5 g/dL (13.5-17.5); IMMATURE GRAN ABSOLUTE AUTO 0.06 K/mm3 (0.00-0.10); IMMATURE GRAN PERCENT AUTO 1 % (0-1); LYMPHOCYTES PERCENT AUTO 4 % (21-46); MONOCYTES ABSOLUTE AUTO 0.47 K/mm3 (0.16-1.47); MONOCYTES PERCENT AUTO 5 % (4-13); Mean Corpuscular HGB 34.6 pg (26.0-34.0); Mean Corpuscular HGB Conc 32.2 g/dL (31.5-36.5); Mean Corpuscular Volume 108 fL (80-100); Mean Platelet Volume 10.2 fL (9.1-12.4); NEUTROPHILS ABSOLUTE AUTO 9.44 K/mm3 (1.96-9.15); NEUTROPHILS PERCENT AUTO 91 % (41-73); Platelet Count 232 K/mm3 (150-400); RDW Coefficient Variation 13.9 % (11.7-14.2); RDW Standard Deviation 54.4 fL (35.1-46.3); Red Blood Cell Count 3.32 M/mm3 (4.30-5.90); White Blood Cell Count 10.37 K/mm3 (4.00-11.30)
[2022-10-23 04:53] LABS: Bun/Creatinine Ratio 23.2 (12.0-20.0); Calcium, Blood 9.2 mg/dL (8.5-10.1); Creatinine, Blood 1.81 mg/dL (0.60-1.20); Potassium, Blood 4.6 mmol/L (3.5-5.5)
[2022-10-23 08:22] VITALS: BP 158/92
[2022-10-23] MEDS ORDERED: FURO20 PO (09:56)
[2022-10-23] MEDS ORDERED: LOSA25 PO (09:56)
[2022-10-23] MEDS ORDERED: METO50ER PO (09:57)
[2022-10-23] MEDS ORDERED: Prednisone10 MG PO (09:59)
[2022-10-23] MEDS ORDERED: VISBIOME 112.51 EACH PO (09:59)
[2022-10-23] MEDS ORDERED: CIPR500 PO (09:59)
[2022-10-23] MEDS ORDERED: ANORO ELLIPTA1 EACH INH (10:00)
--- NOTE | 2022-10-23 10:49 | NUR ---
PT DISCHARGED AT 1035 WITH TO TRANSPORT. PT AOX2-3 SEEMS MORE CENTERED WITH IN THE ROOM. PT HAS BEEN IMPULSIVE THROUGH THE NIGHT. NO PAIN NOTED AND SEEMS READY TO GO. ALL PAPERWORK WAS REVIEWED AND EDUCATIONAL MATERIAL SENT WITH THEM. PT WAS ESCORTED OUT VIA WHEEL CHAIR NO DISTRESS NOTED.
== END 2022-10-23 10:34 | disposition home health service (06) | DRG 291 ==
LOC: ER 06:51 → MEDS 11:36
PROVIDERS: Student in an Organized Health Care Education/Training Program; ADMIT Internal Medicine
PROC: 5A09457 Assistance with Respiratory Ventilation, 24-96 Consecutive Hours, Continuous Positive Airway Pressure (ICD-10-PCS; principal; 2022-10-20)
DX: I13.0 Hypertensive heart and chronic kidney disease with heart failure and stage 1 through stage 4 chronic kidney disease, or unspecified chronic kidney disease (principal); I50.23 Acute on chronic systolic (congestive) heart failure; J96.01 Acute respiratory failure with hypoxia; E87.29 Other acidosis; J44.1 Chronic obstructive pulmonary disease with (acute) exacerbation; Z66 Do not resuscitate; M10.9 Gout, unspecified; I48.91 Unspecified atrial fibrillation; F10.20 Alcohol dependence, uncomplicated; K21.9 Gastro-esophageal reflux disease without esophagitis; D63.1 Anemia in chronic kidney disease; D53.9 Nutritional anemia, unspecified; N18.9 Chronic kidney disease, unspecified; Z92.3 Personal history of irradiation; Z85.21 Personal history of malignant neoplasm of larynx; Z90.89 Acquired absence of other organs; Z98.890 Other specified postprocedural states; Z87.891 Personal history of nicotine dependence; Z79.01 Long term (current) use of anticoagulants; Z79.899 Other long term (current) drug therapy
CPT/HCPCS: 36415; 71046; 80048; 80053; 82803; 83735; 83880; 84145; 84484; 85025; 87070; 87205; 93005; 93010; 94640; 94644; 94645; 94664; 94760; 96365; 96367; 96375; 97110; 97116; 97161; 99285-25; A9270; J0360; J0692; J1940; J2930; J3475; J7050; J7512

== ENCOUNTER → 2023-08-02 | Outpatient (CLI) | payer MEDICARE ==
[~2023-08-02] MED LIST changes: +ALBU90OI INH; +Amiodarone HCl200 MG PO; +CILOSTAZOL50 M1 PO; +CIPR500 PO; +LOSA25 PO; +NITR.4SL SL; +Prednisone10 MG PO; +VISBIOME 112.51 EACH PO; +Ventolin/Prove6.7 GM; +XARELTO20 MG PO
[2023-08-02 18:38] LABS: Source, Urine Clean Catch
[2023-08-02 20:02] LABS: Appearance, Urine Turbid (Clear); Bilirubin, Urine Neg (Neg); Blood, Urine 4+ (Neg); Color, Urine Yellow (P-Yellow); Glucose Qualitative, Urine Neg (Neg); Ketones, Urine Neg (Neg); Leukocyte Esterase, Urine 3+ (Neg); Nitrite, Urine Pos (Neg); Protein, Urine 3+ (Neg); Specific Gravity, Urine 1.015 (1.003-1.022); Urobilinogen, Urine NORM (Normal)
[2023-08-02 20:27] LABS: Bacteria Many /hpf; Squamous Epithelial Cells Rare /hpf (Few); White Blood Cells, Urine TNTC /hpf (0-5)
== END ==
LOC: LAB SHORT 18:36 → LAB 18:36
PROVIDERS: Physician Assistant
DX: N39.0 Urinary tract infection, site not specified (principal)
CPT/HCPCS: 81001; 87077; 87086; 87186

== ENCOUNTER → 2024-01-30 | Outpatient (CLI) | payer MEDICARE ==
[2024-01-30 11:53] LABS: BASOPHILS ABSOLUTE AUTO 0.04 K/mm3 (0.00-0.23); BASOPHILS PERCENT AUTO 1 % (0-2); EOSINOPHILS ABSOLUTE AUTO 0.09 K/mm3 (0.00-0.68); EOSINOPHILS PERCENT AUTO 2 % (0-6); Hematocrit 37.1 % (37.0-53.0); Hemoglobin 12.1 g/dL (13.5-17.5); IMMATURE GRAN ABSOLUTE AUTO 0.01 K/mm3 (0.00-0.10); IMMATURE GRAN PERCENT AUTO 0 % (0-1); LYMPHOCYTES ABSOLUTE AUTO 0.63 K/mm3 (0.84-5.20); LYMPHOCYTES PERCENT AUTO 15 % (21-46); MONOCYTES ABSOLUTE AUTO 0.31 K/mm3 (0.16-1.47); MONOCYTES PERCENT AUTO 7 % (4-13); Mean Corpuscular HGB 34.2 pg (26.0-34.0); Mean Corpuscular HGB Conc 32.6 g/dL (31.5-36.5); Mean Corpuscular Volume 105 fL (80-100); Mean Platelet Volume 9.8 fL (9.1-12.4); NEUTROPHILS PERCENT AUTO 75 % (41-73); Platelet Count 159 K/mm3 (150-400); RDW Coefficient Variation 13.8 % (11.7-14.2); RDW Standard Deviation 52.5 fL (35.1-46.3); Red Blood Cell Count 3.54 M/mm3 (4.30-5.90); White Blood Cell Count 4.28 K/mm3 (4.00-11.30)
[2024-01-30 12:08] LABS: Albumin, Blood 3.5 g/dL (3.4-5.0); Bilirubin, Total 0.7 mg/dL (0.1-1.0); Bun/Creatinine Ratio 21.5 (12.0-20.0); Calcium, Blood 8.5 mg/dL (8.5-10.1); Globulin, Blood 3.4 g/dL (2.2-4.0); Potassium, Blood 4.3 mmol/L (3.5-5.5); Total Protein, Blood 6.9 g/dL (6.4-8.2)
== END | disposition home or self-care (01) ==
LOC: LAB 11:47 → LAB SHORT 11:47
PROVIDERS: Family Medicine
DX: R60.0 Localized edema (principal)
CPT/HCPCS: 80053; 83880; 85025

== ENCOUNTER → 2024-01-31 | Outpatient (CLI) | payer MEDICARE ==
[2024-01-31 10:52] LABS: Bun/Creatinine Ratio 22.7 (12.0-20.0); Calcium, Blood 8.3 mg/dL (8.5-10.1); Creatinine, Blood 1.98 mg/dL (0.60-1.20); Potassium, Blood 4.4 mmol/L (3.5-5.5)
== END | disposition home or self-care (01) ==
LOC: LAB SHORT 10:41 → LAB 10:41
PROVIDERS: Family Medicine
DX: I50.9 Heart failure, unspecified (principal)
CPT/HCPCS: 80048

== ENCOUNTER 2024-04-05 12:35 | Day surgery (SDC) | payer MEDICARE ==
[~2024-04-05] VITALS: Ht 182.9 cm; Wt 106.2 kg
[~2024-04-05 12:35] MED LIST changes: +Balanced Salt Epinephrine Irrigation Solution 500 mL IR SCH; +Lidocaine HCl/Pf 1% 5 ML VIAL XX SCH; +NS 500 ML IV ONE; +PHENYLEPHRINE\\TROPICAMIDE\\TETRACAINE OPHTHALMIC DILATING SOLN LEFTEYE PRN; +Povidone-Iodine 450 DROP/30 ML Solution LEFTEYE SCH; +Povidone-Iodine 450 DROP/30 ML Solution ONE; +Tetracaine HCl/Pf 0.5% Opth Soln 4 ml ONE; +Triamcinolone Inj Susp 40 MG / ML 1ML Vial INJ SCH; +Triamcinolone Inj Susp 40 MG / ML 1ML Vial ONE
[2024-04-05] MEDS ORDERED: NS 500 ML IV ONE (13:00)
[2024-04-05] MEDS ORDERED: AMLO5 PO (13:05)
[2024-04-05] MEDS ORDERED: LOSA25 PO (13:05)
[2024-04-05] MEDS ORDERED: METO25ER PO (13:07)
[2024-04-05] MEDS ORDERED: TAMS.4ER PO (13:07)
[2024-04-05] MEDS ORDERED: Coumadin2 MG PO (13:08)
[2024-04-05] MEDS ORDERED: Midazolam HCl 1MG / ML 2ML Vial ONE (13:16)
[2024-04-05] MEDS ORDERED: FentaNYL Citrate 50 MCG/ML 2 ML Injection ONE (13:16)
[2024-04-05] MEDS ORDERED: HydrALAZINE HCl 20 MG / ML 1ML Vial ONE (14:05)
[2024-04-05] MEDS ORDERED: Moxifloxacin HCL 0.5 MG/0.1 ML 0.4MLSYR LEFTEYE ONE (14:07)
[2024-04-05 14:34] VITALS: BP 148/90
== END 2024-04-05 14:45 | disposition home or self-care (01) ==
LOC: ORSCSDS 12:35
PROVIDERS: Ophthalmology
PROC: 08RK3JZ Replacement of Left Lens with Synthetic Substitute, Percutaneous Approach (ICD-10-PCS; principal; 2024-04-05 14:00)
DX: H25.813 Combined forms of age-related cataract, bilateral (principal); H21.81 Floppy iris syndrome; I48.91 Unspecified atrial fibrillation; Z79.01 Long term (current) use of anticoagulants; I12.9 Hypertensive chronic kidney disease with stage 1 through stage 4 chronic kidney disease, or unspecified chronic kidney disease; N18.9 Chronic kidney disease, unspecified; I25.2 Old myocardial infarction; Z79.899 Other long term (current) drug therapy; J44.9 Chronic obstructive pulmonary disease, unspecified
CPT/HCPCS: J0360; J2250; J3010; J3301; J7040; V2632

== ENCOUNTER 2024-04-12 09:28 | Day surgery (SDC) | payer MEDICARE ==
[~2024-04-12] VITALS: Ht 182.9 cm; Wt 105.5 kg
[~2024-04-12 09:28] MED LIST changes: +AMLO5 PO; +Coumadin2 MG PO; +METO25ER PO; +Moxifloxacin HCL 0.5 MG/0.1 ML 0.4MLSYR RIGHTEYE SCH; -PHENYLEPHRINE\\TROPICAMIDE\\TETRACAINE OPHTHALMIC DILATING SOLN LEFTEYE PRN; +PHENYLEPHRINE\\TROPICAMIDE\\TETRACAINE OPHTHALMIC DILATING SOLN RIGHTEYE PRN; -Povidone-Iodine 450 DROP/30 ML Solution LEFTEYE SCH; +Povidone-Iodine 450 DROP/30 ML Solution RIGHTEYE SCH; +TAMS.4ER PO
[2024-04-12 10:20] VITALS: BP 185/84
[2024-04-12] MEDS ORDERED: NS 500 ML IV ONE (10:21)
[2024-04-12] MEDS ORDERED: Ondansetron HCl 2 MG / ML 2ML Vial ONE (10:51)
[2024-04-12] MEDS ORDERED: Midazolam HCl 1MG / ML 2ML Vial ONE (10:51)
[2024-04-12] MEDS ORDERED: FentaNYL Citrate 50 MCG/ML 2 ML Injection ONE (10:51)
[2024-04-12] MEDS ORDERED: propofoL 20 ML IV ONE (10:52)
--- NOTE | 2024-04-12 11:26 | NUR ---
04/12/24 1126 Gisella Lea CASE CANCELLED PER ANESTHESIA PROVIDER, PACE MAKER APPEARS TO NOT BE FUNCTIONING [place], HEART RATE OF 29
--- NOTE | 2024-04-12 12:38 | NUR ---
04/12/24 1238 Flavio Cosme FOR PIGTAIL FOUND UNOPENED AFTER TRANSFER TO ED. ED CALLED AT 1200 AND NOTIFIED PIGTAIL MAY NOT HAVE BEEN FILLED WITH SALINE.
== END 2024-04-12 11:15 | disposition home or self-care (01) ==
LOC: ORSCSDS 09:28
DX: H25.11 Age-related nuclear cataract, right eye (principal); Z53.9 Procedure and treatment not carried out, unspecified reason
CPT/HCPCS: J2250; J2405; J2704; J3010; J3301; J7040

== ENCOUNTER 2024-04-12 11:29 | Emergency (ER) | payer MEDICARE ==
[~2024-04-12] VITALS: Ht 182.9 cm; Wt 104.3 kg
[~2024-04-12 11:29] MED LIST changes: -Balanced Salt Epinephrine Irrigation Solution 500 mL IR SCH; -Lidocaine HCl/Pf 1% 5 ML VIAL XX SCH; -Moxifloxacin HCL 0.5 MG/0.1 ML 0.4MLSYR RIGHTEYE SCH; -NS 500 ML IV ONE; -PHENYLEPHRINE\\TROPICAMIDE\\TETRACAINE OPHTHALMIC DILATING SOLN RIGHTEYE PRN; -Povidone-Iodine 450 DROP/30 ML Solution ONE; -Povidone-Iodine 450 DROP/30 ML Solution RIGHTEYE SCH; -Tetracaine HCl/Pf 0.5% Opth Soln 4 ml ONE; -Triamcinolone Inj Susp 40 MG / ML 1ML Vial INJ SCH; -Triamcinolone Inj Susp 40 MG / ML 1ML Vial ONE
[2024-04-12 12:03] LABS: BASOPHILS ABSOLUTE AUTO 0.04 K/mm3 (0.00-0.23); BASOPHILS PERCENT AUTO 1 % (0-2); EOSINOPHILS ABSOLUTE AUTO 0.07 K/mm3 (0.00-0.68); EOSINOPHILS PERCENT AUTO 2 % (0-6); Hemoglobin 13.1 g/dL (13.5-17.5); IMMATURE GRAN ABSOLUTE AUTO 0.02 K/mm3 (0.00-0.10); IMMATURE GRAN PERCENT AUTO 0 % (0-1); LYMPHOCYTES ABSOLUTE AUTO 0.84 K/mm3 (0.84-5.20); LYMPHOCYTES PERCENT AUTO 19 % (21-46); MONOCYTES ABSOLUTE AUTO 0.39 K/mm3 (0.16-1.47); MONOCYTES PERCENT AUTO 9 % (4-13); Mean Corpuscular HGB 34.9 pg (26.0-34.0); Mean Corpuscular HGB Conc 32.8 g/dL (31.5-36.5); Mean Corpuscular Volume 107 fL (80-100); NEUTROPHILS ABSOLUTE AUTO 3.17 K/mm3 (1.96-9.15); NEUTROPHILS PERCENT AUTO 70 % (41-73); Platelet Count 157 K/mm3 (150-400); RDW Coefficient Variation 14.7 % (11.7-14.2); RDW Standard Deviation 58.8 fL (35.1-46.3); Red Blood Cell Count 3.75 M/mm3 (4.30-5.90); White Blood Cell Count 4.53 K/mm3 (4.00-11.30)
[2024-04-12 12:19] LABS: International Normalized Ratio 1.47; Prothrombin Time Results 15.3 Sec (9.7-11.5)
[2024-04-12 12:30] LABS: Albumin, Blood 3.5 g/dL (3.4-5.0); Bilirubin, Total 0.8 mg/dL (0.1-1.0); Calcium, Blood 8.3 mg/dL (8.5-10.1); Creatinine, Blood 1.76 mg/dL (0.60-1.20); Globulin, Blood 3.5 g/dL (2.2-4.0); Potassium, Blood 4.6 mmol/L (3.5-5.5)
[2024-04-12 15:31] VITALS: BP 162/82
== END 2024-04-12 15:25 | disposition home or self-care (01) ==
LOC: ER 11:29
PROVIDERS: Physician Assistant
DX: R00.1 Bradycardia, unspecified (principal); R79.1 Abnormal coagulation profile; M19.90 Unspecified osteoarthritis, unspecified site; I11.0 Hypertensive heart disease with heart failure; I50.9 Heart failure, unspecified; K21.9 Gastro-esophageal reflux disease without esophagitis; J44.89 Other specified chronic obstructive pulmonary disease; Z95.810 Presence of automatic (implantable) cardiac defibrillator; Z87.891 Personal history of nicotine dependence; Z79.01 Long term (current) use of anticoagulants; Z79.899 Other long term (current) drug therapy; Z88.2 Allergy status to sulfonamides; Z88.1 Allergy status to other antibiotic agents
CPT/HCPCS: 80053; 85025; 85610; 93005; 93010; 99284-25; J2250; J2405; J2704; J3010; J3301; J7040

== ENCOUNTER 2024-07-02 05:35 | Day surgery (SDC) | payer MEDICARE ==
[~2024-07-02 05:35] MED LIST changes: +AMOCLA875 PO; +BUME1 PO; +DOCU100 PO; +DOCUZEN 8.6-501 EACH PO; +HYDR1TAB94 PO; +ONDA4 PO; +SODBIC650 PO
[2024-07-02] MEDS ORDERED: Lidocaine HCl 4% Cream 5 GM ONE (13:09)
== END 2024-07-04 23:00 | disposition home or self-care (01) ==
LOC: WOUND 05:35
DX: L89.623 Pressure ulcer of left heel, stage 3 (principal); I50.9 Heart failure, unspecified; J44.89 Other specified chronic obstructive pulmonary disease; G47.30 Sleep apnea, unspecified; Z88.2 Allergy status to sulfonamides
CPT/HCPCS: A6214; A9270; G0463

== ENCOUNTER 2024-07-10 03:34 | Day surgery (SDC) | payer MEDICARE | END 2024-07-10 23:00 | disposition home or self-care (01) | LOC: WOUND 03:34 | DX: L89.623 Pressure ulcer of left heel, stage 3 (principal); I50.9 Heart failure, unspecified | CPT/HCPCS: G0463 ==

== ENCOUNTER 2024-07-18 00:55 | Day surgery (SDC) | payer MEDICARE ==
[2024-07-18] MEDS ORDERED: Lidocaine HCl 4% Cream 5 GM ONE (09:07)
== END 2024-07-18 23:00 | disposition home or self-care (01) ==
LOC: WOUND 00:55
DX: L89.893 Pressure ulcer of other site, stage 3 (principal); I50.9 Heart failure, unspecified; L89.623 Pressure ulcer of left heel, stage 3; Z13.220 Encounter for screening for lipoid disorders; G47.33 Obstructive sleep apnea (adult) (pediatric); D64.9 Anemia, unspecified; I48.91 Unspecified atrial fibrillation
CPT/HCPCS: 36415; 80053; 80061; 84443; 85025; 85610; A6214; A9270

== ENCOUNTER 2024-07-25 04:16 | Day surgery (SDC) | payer MEDICARE ==
[2024-07-25] MEDS ORDERED: Lidocaine HCl 4% Cream 5 GM ONE (09:28)
== END 2024-07-25 23:03 | disposition home or self-care (01) ==
LOC: WOUND 04:16
DX: L89.893 Pressure ulcer of other site, stage 3 (principal); I50.9 Heart failure, unspecified
CPT/HCPCS: A6214; A9270

== ENCOUNTER 2024-08-08 03:06 | Day surgery (SDC) | payer MEDICARE ==
[2024-08-08] MEDS ORDERED: Lidocaine HCl 4% Cream 5 GM ONE (09:32)
== END 2024-08-08 23:00 | disposition home or self-care (01) ==
LOC: WOUND 03:06
DX: L89.893 Pressure ulcer of other site, stage 3 (principal); I50.9 Heart failure, unspecified
CPT/HCPCS: A6214; A9270

== ENCOUNTER 2024-08-15 06:00 | Day surgery (SDC) | payer MEDICARE ==
[2024-08-15] MEDS ORDERED: Lidocaine HCl 4% Cream 5 GM ONE (09:45)
== END 2024-08-15 23:00 | disposition home or self-care (01) ==
LOC: WOUND 06:00
DX: L89.893 Pressure ulcer of other site, stage 3 (principal); I50.9 Heart failure, unspecified
CPT/HCPCS: A6214; A9270

== ENCOUNTER 2024-08-22 01:51 | Day surgery (SDC) | payer MEDICARE ==
[2024-08-22] MEDS ORDERED: Lidocaine HCl 4% Cream 5 GM ONE (09:25)
== END 2024-08-22 23:00 | disposition home or self-care (01) ==
LOC: WOUND 01:51
DX: L89.623 Pressure ulcer of left heel, stage 3 (principal); I50.9 Heart failure, unspecified
CPT/HCPCS: A6214; A9270

== ENCOUNTER 2024-09-07 03:18 | Day surgery (SDC) | payer MEDICARE ==
[2024-09-07] MEDS ORDERED: Lidocaine HCl 4% Cream 5 GM ONE (09:55)
== END 2024-09-07 23:00 | disposition home or self-care (01) ==
LOC: WOUND 03:18
DX: L89.623 Pressure ulcer of left heel, stage 3 (principal); I50.9 Heart failure, unspecified; M25.551 Pain in right hip; S72.141D Displaced intertrochanteric fracture of right femur, subsequent encounter for closed fracture with routine healing
CPT/HCPCS: 73502; A6214; A9270

== ENCOUNTER 2024-09-12 00:50 | Day surgery (SDC) | payer MEDICARE | END 2024-09-12 23:00 | disposition home or self-care (01) | LOC: WOUND 00:50 | DX: L89.623 Pressure ulcer of left heel, stage 3 (principal); I50.9 Heart failure, unspecified | CPT/HCPCS: A6214; G0463 ==

== ENCOUNTER 2024-09-19 02:37 | Day surgery (SDC) | payer MEDICARE ==
[2024-09-19] MEDS ORDERED: Lidocaine HCl 4% Cream 5 GM ONE (09:12)
== END 2024-09-19 23:00 | disposition home or self-care (01) ==
LOC: WOUND 02:37
DX: L89.893 Pressure ulcer of other site, stage 3 (principal); I50.9 Heart failure, unspecified
CPT/HCPCS: A9270; G0463

== ENCOUNTER 2024-10-08 14:30 | Emergency (ER) | payer MEDICARE ==
[~2024-10-08] VITALS: Ht 185.4 cm; Wt 93.4 kg
[2024-10-08] MEDS ORDERED: NS 1,000 ML IV SCH (14:50)
[2024-10-08 15:31] LABS: BASOPHILS ABSOLUTE AUTO 0.03 K/mm3 (0.00-0.23); BASOPHILS PERCENT AUTO 1 % (0-2); EOSINOPHILS ABSOLUTE AUTO 0.09 K/mm3 (0.00-0.68); EOSINOPHILS PERCENT AUTO 2 % (0-6); Hematocrit 39.9 % (37.0-53.0); Hemoglobin 13.4 g/dL (13.5-17.5); IMMATURE GRAN ABSOLUTE AUTO 0.01 K/mm3 (0.00-0.10); IMMATURE GRAN PERCENT AUTO 0 % (0-1); LYMPHOCYTES ABSOLUTE AUTO 0.84 K/mm3 (0.84-5.20); LYMPHOCYTES PERCENT AUTO 17 % (21-46); MONOCYTES ABSOLUTE AUTO 0.53 K/mm3 (0.16-1.47); MONOCYTES PERCENT AUTO 10 % (4-13); Mean Corpuscular HGB 33.5 pg (26.0-34.0); Mean Corpuscular HGB Conc 33.6 g/dL (31.5-36.5); Mean Corpuscular Volume 100 fL (80-100); Mean Platelet Volume 10.3 fL (9.1-12.4); NEUTROPHILS PERCENT AUTO 71 % (41-73); Platelet Count 196 K/mm3 (150-400); RDW Standard Deviation 47.6 fL (35.1-46.3)
[2024-10-08] MEDS ORDERED: Ketorolac Tromethamine 15mg Vial IV ONE (15:55)
[2024-10-08] MEDS ORDERED: DiphenhydrAMINE HCl 50 MG/ML 1ML Vial IV ONE (15:55)
[2024-10-08] MEDS ORDERED: Prochlorperazine Edisylate 10 mg Vial IV ONE (15:55)
[2024-10-08 16:01] LABS: Albumin, Blood 3.1 g/dL (3.4-5.0); Albumin/Globulin Ratio 0.8 (0.8-1.8); Bun/Creatinine Ratio 24.2 (12.0-20.0); Calcium, Blood 8.9 mg/dL (8.5-10.1); Creatinine, Blood 2.23 mg/dL (0.60-1.20); Globulin, Blood 3.7 g/dL (2.2-4.0); Potassium, Blood 4.3 mmol/L (3.5-5.5); Total Protein, Blood 6.8 g/dL (6.4-8.2)
[2024-10-08 19:11] VITALS: BP 189/92
== END 2024-10-08 19:12 | disposition home or self-care (01) ==
LOC: ER 14:30
PROVIDERS: Student in an Organized Health Care Education/Training Program
DX: I95.9 Hypotension, unspecified (principal); R51.9 Headache, unspecified; R74.01 Elevation of levels of liver transaminase levels; I48.91 Unspecified atrial fibrillation; I11.0 Hypertensive heart disease with heart failure; I50.9 Heart failure, unspecified; J44.9 Chronic obstructive pulmonary disease, unspecified; I25.2 Old myocardial infarction; Z87.891 Personal history of nicotine dependence; Z95.810 Presence of automatic (implantable) cardiac defibrillator; Z88.2 Allergy status to sulfonamides; Z88.1 Allergy status to other antibiotic agents; Z79.01 Long term (current) use of anticoagulants; Z79.899 Other long term (current) drug therapy
CPT/HCPCS: 70450; 71046; 76705; 80053; 83690; 83880; 84484; 85025; 93005; 93010; 96361; 96374; 96375; 99285-25; J0780; J1200; J1885; J7030

== ENCOUNTER 2025-01-13 08:09 | Emergency (ER) | payer MEDICARE ==
[~2025-01-13] VITALS: Ht 182.9 cm; Wt 99.8 kg
[2025-01-13 09:36] LABS: BASOPHILS ABSOLUTE AUTO 0.03 K/mm3 (0.00-0.23); BASOPHILS PERCENT AUTO 1 % (0-2); EOSINOPHILS ABSOLUTE AUTO 0.01 K/mm3 (0.00-0.68); EOSINOPHILS PERCENT AUTO 0 % (0-6); Hematocrit 41.6 % (37.0-53.0); Hemoglobin 13.1 g/dL (13.5-17.5); IMMATURE GRAN ABSOLUTE AUTO 0.00 K/mm3 (0.00-0.10); IMMATURE GRAN PERCENT AUTO 0 % (0-1); LYMPHOCYTES ABSOLUTE AUTO 0.46 K/mm3 (0.84-5.20); LYMPHOCYTES PERCENT AUTO 8 % (21-46); MONOCYTES ABSOLUTE AUTO 0.18 K/mm3 (0.16-1.47); MONOCYTES PERCENT AUTO 3 % (4-13); Mean Corpuscular HGB Conc 31.5 g/dL (31.5-36.5); Mean Corpuscular Volume 110 fL (80-100); NEUTROPHILS ABSOLUTE AUTO 5.30 K/mm3 (1.96-9.15); NEUTROPHILS PERCENT AUTO 89 % (41-73); NRBC ABSOLUTE 0.00 K/mm3 (0.00-0.02); NRBC Auto 0.0 /100 WBC (0.0-0.2); Platelet Count 147 K/mm3 (150-400); RDW Coefficient Variation 15.5 % (11.7-14.2); RDW Standard Deviation 63.4 fL (35.1-46.3)
[2025-01-13 10:05] LABS: Alanine Aminotransfer (ALT/SGP 57.0 U/L (12-78); Albumin, Blood 3.7 g/dL (3.4-5.0); Albumin/Globulin Ratio 1.0 (0.8-1.8); Anion Gap 14.0 mmol/L (3-11); Aspartate Aminotrans (AST/SGOT 70.0 U/L (12-37); Bilirubin, Total 0.7 mg/dL (0.1-1.0); Blood Urea Nitrogen 49.0 mg/dL (8-24); CO2, Blood 23.0 mmol/L (21-32); Calcium, Blood 8.9 mg/dL (8.5-10.1); Chloride, Blood 110.0 mmol/L (98-108); Creatinine, Blood 2.08 mg/dL (0.60-1.20); Globulin, Blood 3.6 g/dL (2.2-4.0); Glucose, Blood 70.0 mg/dL (70-99); Potassium, Blood 4.1 mmol/L (3.5-5.5); Sodium, Blood 143.0 mmol/L (136-145); Total Protein, Blood 7.3 g/dL (6.4-8.2)
[2025-01-13 11:06] LABS: Influenza A, PCR NEGATIVE (NEGATIVE); Influenza B, PCR NEGATIVE (NEGATIVE); Resp Syncytial Virus, PCR NEGATIVE (NEGATIVE); SARS-Cov-2 (COVID-19) PCR, MMC NEGATIVE (NEGATIVE)
[2025-01-13 12:15] VITALS: BP 197/81
[2025-01-13 12:28] LABS: Source, Urine Straight Cath
[2025-01-13 12:35] LABS: Bilirubin, Urine Neg (Neg); Color, Urine Yellow (P-Yellow); Glucose Qualitative, Urine Neg (Neg); Ketones, Urine Neg (Neg); Leukocyte Esterase, Urine 3+ (Neg); Protein, Urine 2+ (Neg); Specific Gravity, Urine 1.020 (1.003-1.022); Urobilinogen, Urine NORM (Normal)
[2025-01-13 12:50] LABS: White Blood Cells, Urine 50-100 /hpf (0-5); Yeast/Fungi Urine Few /hpf
== END 2025-01-13 13:51 | disposition home or self-care (01) ==
LOC: ER 08:09
PROVIDERS: Student in an Organized Health Care Education/Training Program
DX: N39.0 Urinary tract infection, site not specified (principal); N17.9 Acute kidney failure, unspecified; I13.0 Hypertensive heart and chronic kidney disease with heart failure and stage 1 through stage 4 chronic kidney disease, or unspecified chronic kidney disease; I50.23 Acute on chronic systolic (congestive) heart failure; N18.9 Chronic kidney disease, unspecified; R53.1 Weakness; T42.6X5A Adverse effect of other antiepileptic and sedative-hypnotic drugs, initial encounter; J44.89 Other specified chronic obstructive pulmonary disease; M10.9 Gout, unspecified; I48.91 Unspecified atrial fibrillation; K21.9 Gastro-esophageal reflux disease without esophagitis; Z87.891 Personal history of nicotine dependence; Z88.2 Allergy status to sulfonamides; Z88.1 Allergy status to other antibiotic agents; Z79.01 Long term (current) use of anticoagulants; Z79.899 Other long term (current) drug therapy
CPT/HCPCS: 71046; 80053; 81001; 85025; 87086; 87106; 87637; 93005; 93010; 96374; 99285-25; A9270; J1938

== ENCOUNTER 2025-02-28 12:30 | Day surgery (SDC) | payer MEDICARE ==
[~2025-02-28] VITALS: Ht 182.9 cm; Wt 101.0 kg
[~2025-02-28 12:30] MED LIST changes: +Balanced Salt Epinephrine Irrigation Solution 500 mL IR SCH; +NS 500 ML IV ONE; +PHENYLEPHRINE\\TROPICAMIDE\\TETRACAINE OPHTHALMIC DILATING SOLN RIGHTEYE PRN; +Povidone-Iodine 450 DROP/30 ML Solution ONE; +Povidone-Iodine 450 DROP/30 ML Solution RIGHTEYE SCH; +Tetracaine HCl/Pf 0.5% Opth Soln 4 ml ONE; +Triamcinolone Inj Susp 40 MG / ML 1ML Vial INJ SCH; +Triamcinolone Inj Susp 40 MG / ML 1ML Vial ONE
--- NOTE | 2025-02-28 13:37 | NUR ---
02/28/25 1336 Gavi Molina 1322: RN OUT TO GET PATIENT FROM [place] IN RESTROOM 1327: PATIENT BROUGHT IN TO PRE-OP AREA
[2025-02-28] MEDS ORDERED: ELIQUIS2.5 M1 PO (13:40)
[2025-02-28] MEDS ORDERED: ANORO ELLIPTA1 EAC1 IH (13:40)
[2025-02-28] MEDS ORDERED: NS 500 ML IV ONE ×2 (13:50→14:07)
[2025-02-28] MEDS ORDERED: Midazolam HCl 1MG / ML 2ML Vial ONE (14:06)
[2025-02-28] MEDS ORDERED: Labetalol HCL 5 MG/ML 4ML Injection (Single Dose) ONE (14:21)
--- NOTE | 2025-02-28 14:41 | NUR ---
02/28/25 1441 Elena Redding PT AMBULATORY TO BATHROOM
[2025-02-28] MEDS ORDERED: HydrALAZINE HCl 20 MG / ML 1ML Vial ONE (14:49)
[2025-02-28 15:10] VITALS: BP 173/69
== END 2025-02-28 15:25 | disposition home or self-care (01) ==
LOC: ORSCSDS 12:30
PROVIDERS: Ophthalmology
PROC: 08RJ3JZ Replacement of Right Lens with Synthetic Substitute, Percutaneous Approach (ICD-10-PCS; principal; 2025-02-28 14:00)
DX: H25.811 Combined forms of age-related cataract, right eye (principal); Z96.1 Presence of intraocular lens; I10 Essential (primary) hypertension; J44.89 Other specified chronic obstructive pulmonary disease; I48.91 Unspecified atrial fibrillation; K21.9 Gastro-esophageal reflux disease without esophagitis; G47.33 Obstructive sleep apnea (adult) (pediatric); E78.00 Pure hypercholesterolemia, unspecified; Z79.01 Long term (current) use of anticoagulants; Z79.899 Other long term (current) drug therapy
CPT/HCPCS: J0360; J2250; J3301; J7040; V2632

== ENCOUNTER 2025-03-03 14:39 | Emergency (ER) | payer MEDICARE ==
[~2025-03-03] VITALS: Ht 185.4 cm; Wt 99.8 kg
[~2025-03-03 14:39] MED LIST changes: +ANORO ELLIPTA1 EAC1 IH; -Balanced Salt Epinephrine Irrigation Solution 500 mL IR SCH; +ELIQUIS2.5 M1 PO; -NS 500 ML IV ONE; -PHENYLEPHRINE\\TROPICAMIDE\\TETRACAINE OPHTHALMIC DILATING SOLN RIGHTEYE PRN; -Povidone-Iodine 450 DROP/30 ML Solution ONE; -Povidone-Iodine 450 DROP/30 ML Solution RIGHTEYE SCH; -Tetracaine HCl/Pf 0.5% Opth Soln 4 ml ONE; -Triamcinolone Inj Susp 40 MG / ML 1ML Vial INJ SCH; -Triamcinolone Inj Susp 40 MG / ML 1ML Vial ONE
[2025-03-03 14:48] VITALS: BP 160/81
== END 2025-03-03 18:17 | disposition home or self-care (01) ==
LOC: ER 14:39
DX: S01.81XA Laceration without foreign body of other part of head, initial encounter (principal); S80.212A Abrasion, left knee, initial encounter; S60.812A Abrasion of left wrist, initial encounter; I10 Essential (primary) hypertension; I48.91 Unspecified atrial fibrillation; J44.9 Chronic obstructive pulmonary disease, unspecified; I25.2 Old myocardial infarction; Z95.810 Presence of automatic (implantable) cardiac defibrillator; Z88.2 Allergy status to sulfonamides; Z88.1 Allergy status to other antibiotic agents; Z79.01 Long term (current) use of anticoagulants; Z79.899 Other long term (current) drug therapy; W18.30XA Fall on same level, unspecified, initial encounter
CPT/HCPCS: 12011; 70450; 71100; 72125; 73030; 73562-LT; 90471; 90715; 99283-25; A9270

== ENCOUNTER → 2025-05-16 | Outpatient (CLI) | payer MEDICARE ==
[2025-05-16 11:01] LABS: BASOPHILS ABSOLUTE AUTO 0.03 K/mm3 (0.00-0.23); BASOPHILS PERCENT AUTO 1 % (0-2); EOSINOPHILS ABSOLUTE AUTO 0.06 K/mm3 (0.00-0.68); EOSINOPHILS PERCENT AUTO 1 % (0-6); Hematocrit 37.6 % (37.0-53.0); Hemoglobin 12.7 g/dL (13.5-17.5); IMMATURE GRAN ABSOLUTE AUTO 0.08 K/mm3 (0.00-0.10); IMMATURE GRAN PERCENT AUTO 1 % (0-1); LYMPHOCYTES ABSOLUTE AUTO 0.79 K/mm3 (0.84-5.20); LYMPHOCYTES PERCENT AUTO 13 % (21-46); MONOCYTES ABSOLUTE AUTO 0.52 K/mm3 (0.16-1.47); MONOCYTES PERCENT AUTO 9 % (4-13); Mean Corpuscular HGB Conc 33.8 g/dL (31.5-36.5); Mean Corpuscular Volume 105 fL (80-100); NEUTROPHILS ABSOLUTE AUTO 4.48 K/mm3 (1.96-9.15); NEUTROPHILS PERCENT AUTO 75 % (41-73); NRBC ABSOLUTE 0.00 K/mm3 (0.00-0.02); NRBC Auto 0.0 /100 WBC (0.0-0.2); Platelet Count 169 K/mm3 (150-400); RDW Coefficient Variation 12.7 % (11.7-14.2); RDW Standard Deviation 49.2 fL (35.1-46.3)
[2025-05-16 12:07] LABS: Anion Gap 6.0 mmol/L (3-11); Blood Urea Nitrogen 48.0 mg/dL (8-24); CO2, Blood 30.0 mmol/L (21-32); Calcium, Blood 8.6 mg/dL (8.5-10.1); Chloride, Blood 106.0 mmol/L (98-108); Creatinine, Blood 2.38 mg/dL (0.60-1.20); Glucose, Blood 91.0 mg/dL (70-99); Potassium, Blood 4.4 mmol/L (3.5-5.5); Sodium, Blood 138.0 mmol/L (136-145)
== END ==
LOC: LAB SHORT 10:39 → LAB 10:39
PROVIDERS: Family Medicine
DX: N39.0 Urinary tract infection, site not specified (principal); N18.32 Chronic kidney disease, stage 3b
CPT/HCPCS: 80048; 85025; 87077; 87086; 87186

== ENCOUNTER 2025-07-06 08:49 | Inpatient (IN) | payer MEDICARE ==
[~2025-07-06] VITALS: Ht 185.4 cm; Wt 96.9 kg
[2025-07-06 09:23] LABS: BASOPHILS ABSOLUTE AUTO 0.02 K/mm3 (0.00-0.23); BASOPHILS PERCENT AUTO 0 % (0-2); EOSINOPHILS ABSOLUTE AUTO 0.05 K/mm3 (0.00-0.68); EOSINOPHILS PERCENT AUTO 1 % (0-6); Hematocrit 37.4 % (37.0-53.0); Hemoglobin 12.2 g/dL (13.5-17.5); IMMATURE GRAN ABSOLUTE AUTO 0.04 K/mm3 (0.00-0.10); IMMATURE GRAN PERCENT AUTO 1 % (0-1); LYMPHOCYTES ABSOLUTE AUTO 0.55 K/mm3 (0.84-5.20); LYMPHOCYTES PERCENT AUTO 7 % (21-46); MONOCYTES ABSOLUTE AUTO 0.56 K/mm3 (0.16-1.47); MONOCYTES PERCENT AUTO 7 % (4-13); Mean Corpuscular HGB Conc 32.6 g/dL (31.5-36.5); Mean Corpuscular Volume 109 fL (80-100); NEUTROPHILS ABSOLUTE AUTO 6.64 K/mm3 (1.96-9.15); NEUTROPHILS PERCENT AUTO 85 % (41-73); NRBC ABSOLUTE 0.00 K/mm3 (0.00-0.02); NRBC Auto 0.0 /100 WBC (0.0-0.2); Platelet Count 280 K/mm3 (150-400); RDW Coefficient Variation 13.6 % (11.7-14.2); RDW Standard Deviation 54.3 fL (35.1-46.3)
[2025-07-06 09:45] LABS: Alanine Aminotransfer (ALT/SGP 14.0 U/L (12-78); Albumin, Blood 2.6 g/dL (3.4-5.0); Albumin/Globulin Ratio 0.6 (0.8-1.8); Anion Gap 10.0 mmol/L (3-11); Aspartate Aminotrans (AST/SGOT 21.0 U/L (12-37); Bilirubin, Total 0.8 mg/dL (0.1-1.0); Blood Urea Nitrogen 39.0 mg/dL (8-24); CO2, Blood 27.0 mmol/L (21-32); Calcium, Blood 8.5 mg/dL (8.5-10.1); Chloride, Blood 106.0 mmol/L (98-108); Creatinine, Blood 1.89 mg/dL (0.60-1.20); Globulin, Blood 4.6 g/dL (2.2-4.0); Glucose, Blood 100.0 mg/dL (70-99); Potassium, Blood 3.9 mmol/L (3.5-5.5); Sodium, Blood 139.0 mmol/L (136-145); Total Protein, Blood 7.2 g/dL (6.4-8.2)
[2025-07-06 11:46] LABS: CORONAVIRUS COVID-19 AG Negative (NEGATIVE)
[2025-07-06] MEDS ORDERED: Furosemide 10 MG / ML 2ML Vial IV ONE (12:15)
[2025-07-06 12:31] LABS: Source, Urine Clean Catch
[2025-07-06 12:37] LABS: Bilirubin, Urine Neg (Neg); Color, Urine Yellow (P-Yellow); Glucose Qualitative, Urine Neg (Neg); Ketones, Urine Neg (Neg); Leukocyte Esterase, Urine 3+ (Neg); Protein, Urine 1+ (Neg); Specific Gravity, Urine 1.020 (1.003-1.022); Urobilinogen, Urine NORM (Normal)
[2025-07-06 12:46] LABS: Red Blood Cells, Urine 0-2 /hpf (0-2); White Blood Cells, Urine 50-100 /hpf (0-5)
[2025-07-06 12:47] LABS: Yeast/Fungi Urine Few /hpf
[2025-07-06] MEDS ORDERED: FLU VACC TS2025-26(6MOS UP)/PF 45 MCG/0.5 ML SYRINGE IM ONE (13:25)
[2025-07-06] MEDS ORDERED: FLU VACC TS2025(65UP)/MF59C/PF 45 MCG/0.5 ML SYRINGE IM SCH (13:30)
[2025-07-06] MEDS ORDERED: CefTRIAXone Sodium 1,000 MG in NS 100 ML IV SCH (15:14)
[2025-07-06] MEDS ORDERED: Bumetanide2 MG PO (15:50)
[2025-07-06] MEDS ORDERED: LOSA25 PO (15:52)
[2025-07-06] MEDS ORDERED: NS 250 ML IV PRN (16:00)
[2025-07-06 16:03] VITALS: BP 169/82
--- NOTE | 2025-07-06 17:48 | NUR ---
ADMISSION NOTE: PATIENT ARRIVES TO ROOM VIA GURNEY AT 1539 FROM ER FOR DX'S OF CHF. PATIENT TRANSFERRED TO BED c 1 ASSIST. PATIENT ORIENTATED TO ROOM AND CALL SYSTEM. PATIENT ADMISSION, MEDRIC AND ASSESSMENT COMPLETED. PATIENT A/OX4, ANSWER TO QUESTIONS APPROPRIATELY, PLEASANT AND COOPERATIVE c CARE. PATIENT DENIES CP/PRESSURE, N/V AND DIZZINESS. PATIENT USES CPAP AT HS, RA AT BASELINE. PATIENT WAS ON 2L O2 ON ADMISSION SATTING 97%, O2 TITRATED TO 1L SATTING 94-95%, LUNGS HAS EXPIRATORY WHEEZY T/O TO AUSCULTATION, ON IV DIURETICS-SCHEDULED DOSE GIVEN PER ORDER. PATIENT CONTINENT OF BLADDER AND USES URINAL INDEPENDENTLY. VITAL SIGNS REVIEWED. CALL LIGHT IN REACH.
[2025-07-06 20:29] VITALS: BP 145/73
[2025-07-07 03:33] VITALS: BP 121/70
--- NOTE | 2025-07-07 05:50 | NUR ---
Shift Summary- - Events: No new events. The patient rested comfortably with even, unlabored breathing. - Safety: Patient reported shortness of breath (SOB). - Orientation: A/Ox4. - Ambulation: Bedrest with bathroom privileges. - Medication: Taken whole with water. - Toileting: Continent x2.
[2025-07-07 06:06] LABS: BASOPHILS ABSOLUTE AUTO 0.03 K/mm3 (0.00-0.23); BASOPHILS PERCENT AUTO 1 % (0-2); EOSINOPHILS ABSOLUTE AUTO 0.11 K/mm3 (0.00-0.68); EOSINOPHILS PERCENT AUTO 2 % (0-6); Hematocrit 32.6 % (37.0-53.0); Hemoglobin 10.6 g/dL (13.5-17.5); IMMATURE GRAN ABSOLUTE AUTO 0.03 K/mm3 (0.00-0.10); IMMATURE GRAN PERCENT AUTO 1 % (0-1); LYMPHOCYTES ABSOLUTE AUTO 0.59 K/mm3 (0.84-5.20); LYMPHOCYTES PERCENT AUTO 9 % (21-46); MONOCYTES ABSOLUTE AUTO 0.60 K/mm3 (0.16-1.47); MONOCYTES PERCENT AUTO 10 % (4-13); Mean Corpuscular HGB Conc 32.5 g/dL (31.5-36.5); Mean Corpuscular Volume 108 fL (80-100); NEUTROPHILS ABSOLUTE AUTO 4.96 K/mm3 (1.96-9.15); NEUTROPHILS PERCENT AUTO 79 % (41-73); NRBC ABSOLUTE 0.00 K/mm3 (0.00-0.02); NRBC Auto 0.0 /100 WBC (0.0-0.2); Platelet Count 240 K/mm3 (150-400); RDW Coefficient Variation 13.6 % (11.7-14.2); RDW Standard Deviation 53.9 fL (35.1-46.3)
[2025-07-07 06:35] LABS: Alanine Aminotransfer (ALT/SGP 10.0 U/L (12-78); Albumin, Blood 2.3 g/dL (3.4-5.0); Albumin/Globulin Ratio 0.6 (0.8-1.8); Anion Gap 8.0 mmol/L (3-11); Aspartate Aminotrans (AST/SGOT 14.0 U/L (12-37); Bilirubin, Total 0.9 mg/dL (0.1-1.0); Blood Urea Nitrogen 38.0 mg/dL (8-24); CO2, Blood 29.0 mmol/L (21-32); Calcium, Blood 8.1 mg/dL (8.5-10.1); Chloride, Blood 107.0 mmol/L (98-108); Creatinine, Blood 2.0 mg/dL (0.60-1.20); Globulin, Blood 3.7 g/dL (2.2-4.0); Glucose, Blood 92.0 mg/dL (70-99); Magnesium, Blood 2.4 mg/dL (1.6-2.4); Potassium, Blood 3.8 mmol/L (3.5-5.5); Sodium, Blood 140.0 mmol/L (136-145); Total Protein, Blood 6.0 g/dL (6.4-8.2)
[2025-07-07 07:34] VITALS: BP 164/81
[2025-07-07] MEDS ORDERED: Albuterol 2.5 MG/3 ML VIAL INH PRN (08:00)
[2025-07-07] MEDS ORDERED: Enoxaparin 40 MG/0.4 ML SYR SC SCH (09:00)
[2025-07-07 15:00] VITALS: BP 155/134
--- NOTE | 2025-07-07 18:01 | NUR ---
PT ALERT AND ORIENTED, ON RA SINCE NOON SATS 94%-97&, PRN NEBS FOR WHEEZING AND SOB, LASIX FOR DIURESING, IV ABX SCHEDULED. PT STATES OVER ALL FEELS MUCH BETTER TODAY, OWN CPAP BROUGHT FROM HOME-AT BEDSIDE. PACER TO LEFT UPPER CHEST. PT OCCASIONALLY C/O LEFT RIB CAGE AREA PAIN- WITH COUGH AND DEEP BREATHING. TOLERATING PO INTAKE. BED ALARM ON, CALL LIGHT IN REACH-PT CALLS APPROPRIATELY.
[2025-07-07 18:26] VITALS: BP 170/72
[2025-07-07 18:29] VITALS: BP 149/81
--- NOTE | 2025-07-07 18:29 | NUR ---
PT HYPERTENSIVE, DR HIDALGO NOTIFIED-STATES HE WILL REVIEW HOME MEDS AND RESTART.
[2025-07-07 19:20] VITALS: BP 147/70
--- NOTE | 2025-07-07 23:17 | NUR ---
REQUEST FOR HOME MEDS- SPOKE TO KENNETH WHO IS TRAY FILLER AND ASKED THAT PATIENT'S HOME MEDS BE ORDERED. SHE AGREED TO PUT THE ORDERS IN.
[2025-07-07] MEDS ORDERED: Ipratropium/Albuterol SulF 2.5-0.5MG/3 ML Amp INH SCH (23:45)
[2025-07-08 02:35] VITALS: BP 120/68
--- NOTE | 2025-07-08 05:27 | NUR ---
Shift Summary- - Events: Home medications ordered for morning administration. Patient reported SOB; RT administered treatment with reported improvement. - Safety: Patient reported shortness of breath (SOB). - Orientation: A/Ox4. - Ambulation: Bedrest with bathroom privileges. - Medication: Taken whole with water. - Toileting: Continent x2. Patient reports ongoing dysuria.
[2025-07-08 06:37] LABS: BASOPHILS ABSOLUTE AUTO 0.03 K/mm3 (0.00-0.23); BASOPHILS PERCENT AUTO 0 % (0-2); EOSINOPHILS ABSOLUTE AUTO 0.07 K/mm3 (0.00-0.68); EOSINOPHILS PERCENT AUTO 1 % (0-6); Hematocrit 33.3 % (37.0-53.0); Hemoglobin 10.9 g/dL (13.5-17.5); IMMATURE GRAN ABSOLUTE AUTO 0.04 K/mm3 (0.00-0.10); IMMATURE GRAN PERCENT AUTO 1 % (0-1); LYMPHOCYTES ABSOLUTE AUTO 0.51 K/mm3 (0.84-5.20); LYMPHOCYTES PERCENT AUTO 7 % (21-46); MONOCYTES ABSOLUTE AUTO 0.54 K/mm3 (0.16-1.47); MONOCYTES PERCENT AUTO 7 % (4-13); Mean Corpuscular HGB Conc 32.7 g/dL (31.5-36.5); Mean Corpuscular Volume 109 fL (80-100); NEUTROPHILS ABSOLUTE AUTO 6.25 K/mm3 (1.96-9.15); NEUTROPHILS PERCENT AUTO 84 % (41-73); NRBC ABSOLUTE 0.00 K/mm3 (0.00-0.02); NRBC Auto 0.0 /100 WBC (0.0-0.2); Platelet Count 274 K/mm3 (150-400); RDW Coefficient Variation 13.4 % (11.7-14.2); RDW Standard Deviation 53.8 fL (35.1-46.3)
[2025-07-08 06:52] LABS: Alanine Aminotransfer (ALT/SGP 12.0 U/L (12-78); Albumin, Blood 2.3 g/dL (3.4-5.0); Albumin/Globulin Ratio 0.6 (0.8-1.8); Anion Gap 6.0 mmol/L (3-11); Aspartate Aminotrans (AST/SGOT 14.0 U/L (12-37); Bilirubin, Total 0.6 mg/dL (0.1-1.0); Blood Urea Nitrogen 44.0 mg/dL (8-24); CO2, Blood 31.0 mmol/L (21-32); Calcium, Blood 8.5 mg/dL (8.5-10.1); Chloride, Blood 104.0 mmol/L (98-108); Creatinine, Blood 2.12 mg/dL (0.60-1.20); Globulin, Blood 3.9 g/dL (2.2-4.0); Glucose, Blood 95.0 mg/dL (70-99); Potassium, Blood 3.2 mmol/L (3.5-5.5); Sodium, Blood 138.0 mmol/L (136-145); Total Protein, Blood 6.2 g/dL (6.4-8.2)
[2025-07-08 07:43] VITALS: BP 153/74
[2025-07-08] MEDS ORDERED: Potassium Chloride 10 Meq Tablet SA PO SCH ×2 (08:00→12:00)
[2025-07-08 16:38] VITALS: BP 160/71
--- NOTE | 2025-07-08 18:10 | NUR ---
PT ALERT AND ORIENTED X4, UP TO CHAIR FOR MOST OF THIS SHIFT ALSO AMBULATED IN UNIT ONCE. STATES STILL HAS SLIGHT PAIN TO LEFT POSTERIOR BACK AREA WITH DEEP BREATHING- NO PRN PAIN INTERVENTION, ON RA, USES HOME CPAP AT NIGHT. STILL RECIEVING IV ANTIBIOTICS. BED ALARM ON, CALL LIGHT IN REACH, PT CALLS APPROPRIATELY. POSSIBLE DC TOMMOROW.
--- NOTE | 2025-07-08 20:25 | NUR ---
PT REPORTED DIFFICULTY SLEEPING AND KRANTHI (BATTERY CHECKER) WAS MADE AWARE. MELATONIN 10MG PO AT HS PRN RX'D AND RECEIVED. NO OTHER COMPLAINTS/CONCERNS EXPRESSED. CALL LIGHT IS IN REACH W/BED ALARM ON FOR SAFETY.
[2025-07-08 20:53] VITALS: BP 113/58
--- NOTE | 2025-07-09 02:05 | NUR ---
REPORT PROVIDED TO BRIAN MESA. PT RESTING W/O S/S DISTRESS AT THIS TIME.
[2025-07-09 05:42] VITALS: BP 122/60
--- NOTE | 2025-07-09 05:59 | NUR ---
SHIFT SUMMARY: PT AOX4, 1PA WITH FWW. PLEASANT AND COOPERATIVE IN CARE. CALLS APPROPRAIATELY. PT TOLERATING MEDICATIONS WELL, NO ACUTE OVERNIGHT EVENTS. PT IN BED RESTING, BED IN LOWEST POSITION, CALL LIGHT IN REACH. CONTINUING CARE.
[2025-07-09 06:16] LABS: BASOPHILS ABSOLUTE AUTO 0.02 K/mm3 (0.00-0.23); BASOPHILS PERCENT AUTO 0 % (0-2); EOSINOPHILS ABSOLUTE AUTO 0.11 K/mm3 (0.00-0.68); EOSINOPHILS PERCENT AUTO 2 % (0-6); Hematocrit 29.7 % (37.0-53.0); Hemoglobin 9.7 g/dL (13.5-17.5); IMMATURE GRAN ABSOLUTE AUTO 0.03 K/mm3 (0.00-0.10); IMMATURE GRAN PERCENT AUTO 1 % (0-1); LYMPHOCYTES ABSOLUTE AUTO 0.42 K/mm3 (0.84-5.20); LYMPHOCYTES PERCENT AUTO 7 % (21-46); MONOCYTES ABSOLUTE AUTO 0.54 K/mm3 (0.16-1.47); MONOCYTES PERCENT AUTO 9 % (4-13); Mean Corpuscular HGB Conc 32.7 g/dL (31.5-36.5); Mean Corpuscular Volume 108 fL (80-100); NEUTROPHILS ABSOLUTE AUTO 4.71 K/mm3 (1.96-9.15); NEUTROPHILS PERCENT AUTO 81 % (41-73); NRBC ABSOLUTE 0.00 K/mm3 (0.00-0.02); NRBC Auto 0.0 /100 WBC (0.0-0.2); Platelet Count 235 K/mm3 (150-400); RDW Coefficient Variation 13.5 % (11.7-14.2); RDW Standard Deviation 53.8 fL (35.1-46.3)
[2025-07-09 06:41] LABS: Alanine Aminotransfer (ALT/SGP 9.0 U/L (12-78); Albumin, Blood 2.2 g/dL (3.4-5.0); Albumin/Globulin Ratio 0.6 (0.8-1.8); Anion Gap 9.0 mmol/L (3-11); Aspartate Aminotrans (AST/SGOT 9.0 U/L (12-37); Bilirubin, Total 0.5 mg/dL (0.1-1.0); Blood Urea Nitrogen 48.0 mg/dL (8-24); CO2, Blood 26.0 mmol/L (21-32); Calcium, Blood 8.1 mg/dL (8.5-10.1); Chloride, Blood 106.0 mmol/L (98-108); Creatinine, Blood 2.12 mg/dL (0.60-1.20); Globulin, Blood 3.5 g/dL (2.2-4.0); Glucose, Blood 90.0 mg/dL (70-99); Potassium, Blood 3.4 mmol/L (3.5-5.5); Sodium, Blood 138.0 mmol/L (136-145); Total Protein, Blood 5.7 g/dL (6.4-8.2)
[2025-07-09 07:15] VITALS: BP 132/71
[2025-07-09] MEDS ORDERED: AMOCLA875 PO (12:07)
[2025-07-09] MEDS ORDERED: AZIT250 PO (12:08)
[2025-07-09] MEDS ORDERED: IPRAT-ALBUT 0.5-3 ML INH (12:11)
--- NOTE | 2025-07-09 12:48 | NUR ---
DISCHARGE NOTE: PT DISCHARGED FROM UNIT VIA WC TO FRONT ENTRANCE OF HOSPITAL. DC INSTRUCTIONS REVIEWED WITH SPOUSE AND PATIENT. PRESCRIPTIONS FAXED TO [facility]. PT TO FOLLOW UP WITH PCP SCHEDULED AND PLAN TO RECEIVE HOME HEALTH SERVICES. ALL BELONGINGS WITH PATIENT. ALL QUESTIONS ANSWERED.
== END 2025-07-09 12:48 | disposition home or self-care (01) | DRG 193 ==
LOC: ER 08:49 → MEDS 13:22 → ERHOLD 13:22 → MEDS 15:43 → ENPENDDIS 07-09 11:20 → MEDS 07-09 12:48
PROVIDERS: Emergency Medicine; Family Medicine; ADMIT Internal Medicine
DX: J18.9 Pneumonia, unspecified organism (principal); I50.43 Acute on chronic combined systolic (congestive) and diastolic (congestive) heart failure; J96.01 Acute respiratory failure with hypoxia; I13.0 Hypertensive heart and chronic kidney disease with heart failure and stage 1 through stage 4 chronic kidney disease, or unspecified chronic kidney disease; J44.0 Chronic obstructive pulmonary disease with (acute) lower respiratory infection; K86.2 Cyst of pancreas; M47.12 Other spondylosis with myelopathy, cervical region; M19.90 Unspecified osteoarthritis, unspecified site; M10.9 Gout, unspecified; I48.91 Unspecified atrial fibrillation; F10.20 Alcohol dependence, uncomplicated; K21.9 Gastro-esophageal reflux disease without esophagitis; I25.10 Atherosclerotic heart disease of native coronary artery without angina pectoris; E66.9 Obesity, unspecified; N18.32 Chronic kidney disease, stage 3b; E78.5 Hyperlipidemia, unspecified; G47.33 Obstructive sleep apnea (adult) (pediatric); E88.09 Other disorders of plasma-protein metabolism, not elsewhere classified; I27.20 Pulmonary hypertension, unspecified; I08.3 Combined rheumatic disorders of mitral, aortic and tricuspid valves; N40.0 Benign prostatic hyperplasia without lower urinary tract symptoms; G31.84 Mild cognitive impairment of uncertain or unknown etiology; R53.81 Other malaise; Z88.1 Allergy status to other antibiotic agents; Z88.2 Allergy status to sulfonamides; Z88.8 Allergy status to other drugs, medicaments and biological substances; Z79.899 Other long term (current) drug therapy; Z79.51 Long term (current) use of inhaled steroids; Z79.01 Long term (current) use of anticoagulants; Z98.890 Other specified postprocedural states; Z90.89 Acquired absence of other organs; Z87.81 Personal history of (healed) traumatic fracture; Z86.74 Personal history of sudden cardiac arrest; Z87.891 Personal history of nicotine dependence; Z87.440 Personal history of urinary (tract) infections; Z68.29 Body mass index [BMI] 29.0-29.9, adult
CPT/HCPCS: 36415; 71046; 80053; 81001; 83735; 83880; 84145; 84484; 85025; 87086; 87106; 87428-QW; 93005; 93010; 94640; 94664; 94762; 96374; 97116; 97161; 97165; 97530; 97535; 99285-25; A9270; J0456; J0696; J1650; J1938; J7050